=== PATIENT | male | born 1980 | race Caucasian/White ===

== ENCOUNTER 2023-02-09 07:11 | Inpatient (IN) | payer OTHER ==
[~2023-02-09] VITALS: Ht 177.8 cm; Wt 90.0 kg
[2023-02-09] VITALS (11 sets, daily range): BP systolic 94–174; BP diastolic 54–74
[2023-02-09 08:04] LABS: BASOPHILS # (AUTO) 0.1 X10'3 (0-0.2); BASOPHILS % (AUTO) 0.8 % (0-1); EOSINOPHILS # (AUTO) 0.1 X10'3 (0-0.9); EOSINOPHILS % (AUTO) 0.7 % (0-6); HEMATOCRIT 38.2 % (42.0-52.0); HEMOGLOBIN 12.9 g/dl (14.0-17.9); LYMPHOCYTES % (AUTO) 18.7 % (21-51); MEAN CORPUSCULAR HGB CONC 33.7 g/dL (33.0-36.5); MEAN CORPUSCULAR VOLUME 103.7 FL (78-98); MEAN PLATELET VOLUME 10.7 FL (7.4-10.4); MONOCYTES # (AUTO) 1.1 X10'3 (0-0.9); MONOCYTES % (AUTO) 10.5 % (2-12); NEUTROPHILS # (AUTO) 7.6 X10'3 (1.8-7.7); NEUTROPHILS % (AUTO) 69.3 % (42-75); PLATELET COUNT 61 X10'3 (140-440); RED BLOOD COUNT 3.69 X10'6 (4.70-6.10); RED CELL DISTRIBUTION WIDTH 15.4 % (11.5-14.5); WHITE BLOOD COUNT 10.9 X10'3 (4.5-11.0)
[2023-02-09 08:17] LABS: ALANINE AMINOTRANSFERASE 39 U/L (12-78); ALBUMIN 3.2 G/DL (3.4-5.0); ALKALINE PHOSPHATASE 157 IU/L (46-116); ANION GAP 14 (8-16); ASPARTATE AMINO TRANSFERASE 90 U/L (10-37); BILIRUBIN,TOTAL 7.1 MG/DL (0.1-1.0); BLOOD UREA NITROGEN 22 MG/DL (7-18); BUN/CREATININE RATIO 24.7 (10.0-20.0); CALCIUM 8.6 MG/DL (8.5-10.1); CHLORIDE 93 MMOL/L (99-107); CREATININE 0.89 MG/DL (0.60-1.10); GLUCOSE 132 MG/DL (70-104); LIPASE < 50 U/L (73-393); SODIUM 134 MMOL/L (135-145); TOTAL CARBON DIOXIDE 27.3 MMOL/L (24-32); eGFR > 90 ML/MIN
[2023-02-09] MEDS ORDERED: pantoprazole 40mg IV 80 MG in normal saline 100ml IV soln 100 ML IV STA (08:17)
[2023-02-09] MEDS ORDERED: pantoprazole 40MG/NS 100ML BAG 100 ML IV STA (08:17)
[2023-02-09 08:18] LABS: ALBUMIN/GLOBULIN RATIO 0.9 (1.1-1.5); TOTAL PROTEIN 6.6 G/DL (6.4-8.2)
[2023-02-09] MEDS ORDERED: octreotide 100mcg/1 ml ampule IV ONE (08:20)
[2023-02-09] MEDS ORDERED: octreotide inj. 1,250 MCG in normal saline 250ml IV soln 243.75 ML IV SCH (08:20)
--- NOTE | 2023-02-09 08:32 | NUR ---
lab called pt k is 3.0. dr rivera notified. rn will obtain iv
--- NOTE | 2023-02-09 08:52 | NUR ---
rn called pharmacy and req they make sandostatin bolus and drip. per pharm they have to make the protonix 80mg.
[2023-02-09 08:55] LABS: LARGE PLATELETS FEW; PLATELET ESTIMATE DECREASED
--- NOTE | 2023-02-09 08:56 | NUR ---
US AT BEDSIDE.
[2023-02-09] MEDS ORDERED: iohexol 350MG/ML 100ml bottle IV ONE (09:13)
--- NOTE | 2023-02-09 09:18 | NUR ---
PT TAKEN TO CT
--- NOTE | 2023-02-09 09:34 | NUR ---
STUDENT TRYING TO GET 2ND IV D/T FLUIDS NOT COMPATIBLE.
--- NOTE | 2023-02-09 09:49 | NUR ---
STUDENT RN NOT ABLE TO GET IV. RN ATTEMPTING TO GET 2ND IV NOW. RN REQ K1/2 NS FROM PHARM.
--- NOTE | 2023-02-09 09:54 | NUR ---
RN CONFIRMED WITH PHARMACIST JOAQUIN THAT 1/2NS WITH K CAN RUN Y SIDE WITH PROTONIX OR OCTREOTIDE.
[2023-02-09] MEDS ORDERED: folic acid 1mg/0.2ml inj IV STA (10:04)
[2023-02-09] MEDS ORDERED: normal saline 1000ml 1,000 ML IV ONE (10:05)
[2023-02-09] MEDS ORDERED: ondansetron/PF 4mg/2ml inj IV ONE (10:05)
[2023-02-09] MEDS ORDERED: LORazepam 2 mg/ml vial IV PRN ×2 (10:05→13:40)
[2023-02-09 10:14] LABS: BILIRUBIN,DIRECT 2.9 MG/DL (0-0.3)
[2023-02-09] MEDS: potassium Cl 40MEQ/1/2NS 520ml 520 ML IV PRN (10:44)
--- NOTE | 2023-02-09 10:56 | NUR ---
PT LEAVING TO GO TO GI LAB.
--- NOTE | 2023-02-09 11:05 | NUR ---
Met with patient in regards to alcohol use and to see if patient was interested in resources for treatment options. Patient declined resources. He said he is done with alcohol and does not need support or resources.
[2023-02-09 11:06] LABS: ETHANOL < 0.010 GM/DL (0.0-0.010)
[2023-02-09] MEDS ORDERED: fentaNYL/PF 50MCG/1 ML 2ML syringe ONE (11:37)
[2023-02-09] MEDS ORDERED: MIDAZolam 1 MG/ML 5ML VIAL ONE (11:37)
[2023-02-09] MEDS ORDERED: LIDOcaine Viscous 15ml cup ONE (11:37)
--- NOTE | 2023-02-09 13:00 | NUR ---
PT RETURNED FROM GI LAB. VSS. NO C/O PAIN.
[2023-02-09] MEDS: thiamine 100mg/ml 2ml inj. IV SCH ×2 (13:03→21:53)
[2023-02-09] MEDS ORDERED: magnesium Cl slow-release 64mg tablet PO PRN (13:40)
[2023-02-09] MEDS ORDERED: HYDROcodone/acetaminophen 10/325mg tab PO PRN (13:40)
[2023-02-09] MEDS ORDERED: diphenhydrAMINE 25mg capsule PO PRN (13:40)
[2023-02-09] MEDS ORDERED: magnesium hydroxide 30ml (MOM) UD suspension PO PRN (13:40)
[2023-02-09] MEDS ORDERED: magnesium 4gm in 100ml NS 100 ML IV PRN (13:40)
[2023-02-09] MEDS ORDERED: bisacodyl 10mg suppository rectal RC PRN (13:40)
[2023-02-09] MEDS ORDERED: potassium Cl 20 mEq SR tablet PO PRN ×2 (13:40)
[2023-02-09] MEDS ORDERED: morphine 2 MG/ML inj. syringe IV PRN ×2 (13:40)
[2023-02-09] MEDS ORDERED: ondansetron/PF 4mg/2ml inj IV PRN (13:40)
[2023-02-09] MEDS ORDERED: acetaminophen 650mg rectal suppository RC PRN (13:40)
[2023-02-09] MEDS ORDERED: potassium Cl 40MEQ/1/2NS 520ml 520 ML IV PRN (13:40)
[2023-02-09] MEDS ORDERED: mag hydrox/Alum hydrox/simeth 30ml oral suspension PO PRN (13:40)
[2023-02-09] MEDS ORDERED: haloperidol lactate 5mg/ml inj IM PRN (13:40)
[2023-02-09] MEDS ORDERED: HYDROcodone/acetaminophen 5mg/325mg tablet PO PRN (13:40)
[2023-02-09] MEDS ORDERED: dextrose 50%-water 50ml dispensing syringe IV PRN (13:40)
[2023-02-09] MEDS ORDERED: magnesium 2GM in 50ml NS 50 ML IV PRN (13:40)
[2023-02-09] MEDS ORDERED: acetaminophen 325mg tablet PO PRN ×2 (13:40)
[2023-02-09] MEDS ORDERED: haloperidol 5mg tablet PO PRN (13:40)
[2023-02-09] MEDS ORDERED: pantoprazole 40MG/NS 100ML BAG 100 ML IV SCH (14:00)
[2023-02-09 14:14] LABS: HEMOGLOBIN A1C 5.3 % (4.5-6.2)
--- NOTE | 2023-02-09 15:37 | NUR ---
RN SENT URINE TO LAB.
[2023-02-09 16:35] LABS: URINE AMPHETAMINE SCREEN NEGATIVE (Neg); URINE BARBITUATE SCREEN NEGATIVE (Neg); URINE BENZODIAZEPINES SCREEN POSITIVE (Neg); URINE CANNABINOID SCREEN NEGATIVE (Neg); URINE COCAINE SCREEN NEGATIVE (Neg); URINE METHADONE SCREEN NEGATIVE (Neg); URINE OPIATE SCREEN NEGATIVE (Neg); URINE PHENCYCLIDINE SCREEN NEGATIVE (Neg)
[2023-02-09 16:48] LABS: CLARITY,URINE CLEAR (Clear); COLOR,URINE AMBER (Yellow); UA COLLECTION TYPE CLN CATCH MIDSTREAM
[2023-02-09 16:50] LABS: PH,URINE 6.5 (4.8-8.0)
[2023-02-09] MEDS ORDERED: NO HOME MEDS (16:50)
[2023-02-09 16:51] LABS: GLUCOSE, URINE NEGATIVE (Neg); KETONES,URINE TRACE mg/dl (Neg); NITRITES, URINE NEGATIVE (Neg); OCCULT BLOOD,URINE NEGATIVE (Neg); PROTEIN,URINE TRACE mg/dl (Neg)
[2023-02-09 17:22] LABS: LEUKOCYTE ESTERASE ,URINE NEGATIVE (Neg)
[2023-02-09 17:23] LABS: BACTERIA,URINE NONE SEEN /HPF (Neg); RBC,URINE NONE SEEN /HPF (0-2); SQUAMOUS EPITHELIAL CELL,UR FEW /LPF (FEW); WBC,URINE 0-4 /HPF (0-4)
[2023-02-09] MEDS: pantoprazole 40MG/NS 100ML BAG 100 ML IV SCH ×2 (17:26→21:00)
--- NOTE | 2023-02-09 17:33 | NUR ---
PHARMACY SENT WRONG IV FLUIDS. 10/18 NS WITH 40 K SENT INSTEAD OF MAINTENANCE DOSE. RN WILL REQ NEW BAG.
--- NOTE | 2023-02-09 17:37 | NUR ---
PT STATED THAT HE DRINKS 1/2 PINT A DAY OF ALCOHOL AND LAST DRINK WAS 02/05/22. PT IS NOT VISIBLY DETOXING AND DENIES HAVING ANXIETY. RN EDUCATED PT THAT THIS MAY START AND S/S OF DT'S AND TO NOTIFY RN IF HE STARTS TO HAVE THEM AND HE VERBALIZED UNDERSTANDING.
[2023-02-09] MEDS ORDERED: nicotine 14mg patch - 24hr TD ONE (17:45)
--- NOTE | 2023-02-09 18:15 | NUR ---
RN RECD CORRECT FLUIDS FROM PHARMACY. ONCOMING SHIFT WILL START.
[2023-02-09 18:22] LABS: MAGNESIUM 1.2 MG/DL (1.5-2.4); POTASSIUM 3.5 MMOL/L (3.5-5.1)
[2023-02-09] MEDS: docusate sod 100mg capsule PO SCH (20:00)
[2023-02-09] MEDS: K and/or MAG REPLACEMENT MC SCH (20:00)
[2023-02-09] MEDS ORDERED: thiamine 100mg/ml 2ml inj. IV SCH (21:00)
[2023-02-09] MEDS: potassium Cl 20mEq in D5-NS 1,000 ML IV SCH (21:42)
[2023-02-10] MEDS: pantoprazole 40MG/NS 100ML BAG 100 ML IV SCH ×2 (00:27→04:28)
[2023-02-10 02:13] VITALS: BP 99/62
[2023-02-10] MEDS: potassium Cl 40MEQ/1/2NS 520ml 520 ML IV PRN (02:42)
[2023-02-10] MEDS: potassium Cl 20mEq in D5-NS 1,000 ML IV SCH (03:10)
--- NOTE | 2023-02-10 04:56 | NUR ---
Received from ER per w/c with octreotide and protonix gtt in tow. Pt. is status post EGD with results of Esophageal varices. Pt. is awake alert and oriented able to speak about events leading to admission no c/o pain states feels pretty good. Pt. has 3 peripheral IV's. pt. able to use BRP voids and defecates without complaints of bleeding. No further c/o nausea or vomiting. Magnesium replacement started for mag level of 1.2. Maintenance IV with KCL also started. Gave second dose of IV KCL for potassium level of 3.0. Will check levels in am.
[2023-02-10 06:00] VITALS: BP 105/47
[2023-02-10 07:51] LABS: BASOPHILS # (AUTO) 0.1 X10'3 (0-0.2); BASOPHILS % (AUTO) 0.8 % (0-1); EOSINOPHILS # (AUTO) 0.2 X10'3 (0-0.9); EOSINOPHILS % (AUTO) 2.8 % (0-6); HEMATOCRIT 28.6 % (42.0-52.0); HEMOGLOBIN 9.6 g/dl (14.0-17.9); LYMPHOCYTES # (AUTO) 1.3 X10'3 (1.1-4.8); LYMPHOCYTES % (AUTO) 18.1 % (21-51); MEAN CORPUSCULAR HEMOGLOBIN 35.2 PG (27.0-31.0); MEAN CORPUSCULAR HGB CONC 33.5 g/dL (33.0-36.5); MEAN PLATELET VOLUME 11.4 FL (7.4-10.4); MONOCYTES # (AUTO) 0.7 X10'3 (0-0.9); NEUTROPHILS # (AUTO) 4.8 X10'3 (1.8-7.7); NEUTROPHILS % (AUTO) 68.3 % (42-75); PLATELET COUNT 58 X10'3 (140-440); RED BLOOD COUNT 2.73 X10'6 (4.70-6.10); RED CELL DISTRIBUTION WIDTH 15.7 % (11.5-14.5)
[2023-02-10] MEDS: K and/or MAG REPLACEMENT MC SCH (08:00)
[2023-02-10] MEDS ORDERED: folic acid 1mg/0.2ml inj IV SCH (08:00)
[2023-02-10] MEDS ORDERED: multivitamins, therapeutics tablet PO SCH ×2 (08:00)
[2023-02-10 08:13] LABS: ALANINE AMINOTRANSFERASE 37 U/L (12-78); ALBUMIN 2.5 G/DL (3.4-5.0); ALKALINE PHOSPHATASE 107 IU/L (46-116); AMYLASE 11 U/L (25-115); ANION GAP 6 (8-16); ASPARTATE AMINO TRANSFERASE 118 U/L (10-37); BILIRUBIN,TOTAL 4.7 MG/DL (0.1-1.0); BLOOD UREA NITROGEN 18 MG/DL (7-18); BUN/CREATININE RATIO 23.4 (10.0-20.0); CALCIUM 7.2 MG/DL (8.5-10.1); CHLORIDE 101 MMOL/L (99-107); CREATININE 0.77 MG/DL (0.60-1.10); GLUCOSE 98 MG/DL (70-104); HDL CHOLESTEROL 12 MG/DL (35-60); LDL CHOLESTEROL 31 MG/DL (50-100); LIPASE 74 U/L (73-393); POTASSIUM 3.8 MMOL/L (3.5-5.1); SODIUM 137 MMOL/L (135-145); TOTAL CARBON DIOXIDE 29.9 MMOL/L (24-32); eGFR > 90 ML/MIN
[2023-02-10 08:15] LABS: CHOL/HDL RATIO 5.8 (0.00-4.99); CHOLESTEROL 69 MG/DL (0-200); PHOSPHORUS 2.4 MG/DL (2.3-4.5); TOTAL PROTEIN 5.1 G/DL (6.4-8.2); TRIGLYCERIDES 205 MG/DL (20-135)
[2023-02-10] MEDS: thiamine 100mg/ml 2ml inj. IV SCH (08:18)
[2023-02-10] MEDS: docusate sod 100mg capsule PO SCH (08:18)
[2023-02-10] MEDS ORDERED: lactulose 20gm/30ml cup PO SCH (12:00)
[2023-02-11] MEDS ORDERED: LORazepam 2 mg/ml vial IV PRN (13:40)
[2023-02-11] MEDS ORDERED: LORazepam 1 MG tablet PO PRN (13:40)
[2023-02-13] MEDS ORDERED: thiamine 100mg tablet PO SCH (08:00)
[2023-02-13] MEDS ORDERED: folic acid 1mg tablet PO SCH (08:00)
[2023-02-13] MEDS ORDERED: LORazepam 2 mg/ml vial IV PRN (13:40)
[2023-02-13] MEDS ORDERED: LORazepam 1 MG tablet PO PRN (13:40)
== END 2023-02-10 12:07 | disposition left against medical advice (07) | DRG 378 ==
LOC: ER 07:11 → ED HOLD 13:45 → EDBEDREQ 18:30 → PCU 3S 18:53
PROVIDERS: ADMIT Family Medicine; ATTEND Family Medicine
PROC: 0DB68ZX Excision of Stomach, Via Natural or Artificial Opening Endoscopic, Diagnostic (ICD-10-PCS; principal; 2023-02-09)
PROC: 30233R1 Transfusion of Nonautologous Platelets into Peripheral Vein, Percutaneous Approach (ICD-10-PCS; 2023-02-09)
PROC: BW211ZZ Computerized Tomography (CT Scan) of Abdomen and Pelvis using Low Osmolar Contrast (ICD-10-PCS; 2023-02-09)
DX: K29.71 Gastritis, unspecified, with bleeding (principal); D68.9 Coagulation defect, unspecified; F10.239 Alcohol dependence with withdrawal, unspecified; F17.210 Nicotine dependence, cigarettes, uncomplicated; D69.59 Other secondary thrombocytopenia; E83.42 Hypomagnesemia; I85.00 Esophageal varices without bleeding; E87.6 Hypokalemia; K70.30 Alcoholic cirrhosis of liver without ascites; Z53.29 Procedure and treatment not carried out because of patient's decision for other reasons; Z71.41 Alcohol abuse counseling and surveillance of alcoholic; Z71.6 Tobacco abuse counseling
CPT/HCPCS: 36415; 36430; 43239; 74174; 76700; 80053; 80061; 80305; 80320; 81001; 82140; 82150; 82248; 83036; 83690; 83735; 84100; 84132; 85008; 85025; 85610; 86885; 86900; 86901; 87081; 97161; 99152; 99285; A4620; C9113; G0378; J2250; J2354; J2405; J3010; J3411; J3475; J3480; J3490; J7030; J7050; P9035; Q9967

== ENCOUNTER 2023-06-09 12:20 | Inpatient (IN) | payer MEDICAID, OTHER ==
[2023-06-09] VITALS (30 sets, daily range): BP systolic 82–120; BP diastolic 29–62; PULSE 84–108; RESP 14–27; TEMP 93.9–97.8; O2SAT 88–99
[~2023-06-09] VITALS: Ht 172.7 cm; Wt 101.4 kg
[~2023-06-09 12:20] MED LIST: 0.9 % SODIUM CHLORIDE 10 ML VIAL ONE; NO HOME MEDS; atropine 0.1mg/ml 10ml syringe ONE; calcium chloride 100 MG/1 ML inj IV ONE; epiNEPHrine 0.1mg/ml 10ml syringe ONE
[2023-06-09] MEDS ORDERED: dextrose 50%-water 50ml dispensing syringe IV ONE ×2 (12:35)
[2023-06-09] MEDS ORDERED: LORazepam 2 mg/ml vial IV ONE (12:35)
[2023-06-09] MEDS ORDERED: LORazepam 2 mg/ml vial ONE (12:39)
--- NOTE | 2023-06-09 12:43 | NUR ---
1MG ATIVAN IV GIVEN
--- NOTE | 2023-06-09 12:45 | NUR ---
1245PM 1MG ATROPINE 1245PM - 1MG EPI HEART RATE 66 RT BAGGING, INTUBATING, 8.0CM ET HEART RATE 80 NOW AT 12:46PM COLOR CHANGE POSITIVE, 24CM TEETH, BILATERAL BREATHE SOUNDS 1248PM - 2 LITERS NS IN LEFT EJ, RIGHT AC IV.
--- NOTE | 2023-06-09 12:58 | NUR ---
DR. GOFF TO CT WITH PT.
[2023-06-09 13:11] LABS: BASOPHILS # (AUTO) 0.2 X10'3 (0-0.2); BASOPHILS % (AUTO) 0.5 % (0-1); EOSINOPHILS # (AUTO) 0.2 X10'3 (0-0.9); MEAN CORPUSCULAR HGB CONC 22.6 g/dL (33.0-36.5)
[2023-06-09 13:12] LABS: EOSINOPHILS % (AUTO) 0.6 % (0-6); LYMPHOCYTES # (AUTO) 8.5 X10'3 (1.1-4.8); LYMPHOCYTES % (AUTO) 24.7 % (21-51); MEAN CORPUSCULAR HEMOGLOBIN 21.4 PG (27.0-31.0); MEAN CORPUSCULAR VOLUME 94.8 FL (78-98); MEAN PLATELET VOLUME 11.6 FL (7.4-10.4); MONOCYTES # (AUTO) 4.5 X10'3 (0-0.9); MONOCYTES % (AUTO) 12.9 % (2-12); NEUTROPHILS # (AUTO) 21.1 X10'3 (1.8-7.7); NEUTROPHILS % (AUTO) 61.3 % (42-75); PLATELET COUNT 246 X10'3 (140-440); RED BLOOD COUNT 1.44 X10'6 (4.70-6.10); RED CELL DISTRIBUTION WIDTH 22.8 % (11.5-14.5)
[2023-06-09] MEDS ORDERED: iohexol 350MG/ML 100ml bottle IV ONE (13:14)
[2023-06-09 13:21] LABS: WHITE BLOOD COUNT 34.5 X10'3 (4.5-11.0)
[2023-06-09 13:22] LABS: HEMATOCRIT 13.7 % (42.0-52.0); HEMOGLOBIN 3.1 g/dl (14.0-17.9)
[2023-06-09] MEDS ORDERED: propofol 1000mg/100ml bottle 100 ML IV ONE (13:24)
[2023-06-09 13:29] LABS: ALANINE AMINOTRANSFERASE 89 U/L (12-78); ALBUMIN 3.2 G/DL (3.4-5.0); ALBUMIN/GLOBULIN RATIO 1.3 (1.1-1.5); ALKALINE PHOSPHATASE 78 IU/L (46-116); ASPARTATE AMINO TRANSFERASE 220 U/L (10-37); BILIRUBIN,TOTAL 2.2 MG/DL (0.1-1.0); BLOOD UREA NITROGEN 64 MG/DL (7-18); BUN/CREATININE RATIO 25.5 (10.0-20.0); CALCIUM 8.2 MG/DL (8.5-10.1); CHLORIDE 89 MMOL/L (99-107); CREATININE 2.51 MG/DL (0.60-1.10); ETHANOL < 10 MG/DL (<10); GLUCOSE 72 MG/DL (70-104); POTASSIUM 4.7 MMOL/L (3.5-5.1); SODIUM 129 MMOL/L (135-145); TOTAL PROTEIN 5.6 G/DL (6.4-8.2); eCRCL 37 ML/MIN; eGFR 28 ML/MIN
[2023-06-09] MEDS ORDERED: levetiracetam inj 1,000 MG in normal saline 100ml IV soln 90 ML IV STA (13:30)
--- NOTE | 2023-06-09 13:33 | NUR ---
BACK FROM CT.
[2023-06-09] MEDS: propofol 1000mg/100ml bottle 100 ML IV PRN ×2 (13:37→18:56)
[2023-06-09] MEDS ORDERED: levetiracetam inj 1,000 MG in normal saline 100ml IV soln 100 ML IV STA (13:38)
--- NOTE | 2023-06-09 13:38 | NUR ---
FAMILY IN LOBBY REPORTS PT AROUND 180 #
[2023-06-09 13:43] LABS: URINE AMPHETAMINE SCREEN NEGATIVE (Neg); URINE BARBITUATE SCREEN NEGATIVE (Neg); URINE BENZODIAZEPINES SCREEN NEGATIVE (Neg); URINE CANNABINOID SCREEN NEGATIVE (Neg); URINE COCAINE SCREEN NEGATIVE (Neg); URINE METHADONE SCREEN NEGATIVE (Neg); URINE OPIATE SCREEN NEGATIVE (Neg); URINE PHENCYCLIDINE SCREEN NEGATIVE (Neg)
--- NOTE | 2023-06-09 13:46 | NUR ---
GAIL (SIGNIFIGANT OTHER) [phone]
--- NOTE | 2023-06-09 13:48 | NUR ---
DR. GOFF SIGNED BLOOD CONSENT EMERGENT. PT GIRL FRIEND SAID PT WOULD WANT IT. HER NIECE WITH HER. BLOOD BANK BROUGHT BLOOD. DR. GOFF KNOWS PT IS A+ FROM LAST VISIT RECEIVING O-.
[2023-06-09 13:49] LABS: MAGNESIUM 2.7 MG/DL (1.5-2.4)
[2023-06-09 13:51] LABS: ANION GAP 35 (8-16); PHOSPHORUS 10.1 MG/DL (2.3-4.5)
[2023-06-09 13:53] LABS: TOTAL CARBON DIOXIDE < 5 MMOL/L (24-32)
--- NOTE | 2023-06-09 13:53 | NUR ---
DR. GOFF PLACING CENTRAL LINE.
[2023-06-09 13:54] LABS: ABG HCO3 2.4 mmol/L (22.0-26.0); ABG PCO2 (T) 17.8 mmHg (35.0-48.0); ABG PH (T) 6.727 (7.340-7.440); ABG PO2 (T) 511.3 mmHg (75.0-100.0); ALLEN'S TEST NEGATIVE; MODE VENT - AC/PRVC; PEEP 5 cm H2O; RESPIRATORY RATE 15 b/min; TIDAL VOLUME 975 mL; TOTAL HEMOGLOBIN < 4.7 G/dl (14.0-17.9)
--- NOTE | 2023-06-09 13:55 | NUR ---
DR. GOFF TOLD BY RT ABG RESULTS- WANTS 2 AMPS OF BICARB NOW. JAVIER HERNANDEZ WORKING ON BLOOD HANGING AND WARMER.
[2023-06-09] MEDS ORDERED: sodium bicarbonate (8.4%) 1 mEq/ml syringe IV ONE ×3 (14:00→17:25)
--- NOTE | 2023-06-09 14:00 | NUR ---
CENTRAL LINE IS IN BY DR. GOFF. BLOOD DOUBLE CHECKED BY Kael MACARIO AND SELF ON BLOOD ADMINISTRATION PAPERWORK.
[2023-06-09] MEDS ORDERED: calcium chloride 100 MG/1 ML inj IV ONE (14:10)
--- NOTE | 2023-06-09 14:17 | NUR ---
DR. FUENTES AT BEDSIDE AT BEDSIDE.
[2023-06-09 14:18] LABS: COLOR,URINE Yellow (Yellow); UA COLLECTION TYPE FOLEY CATH
--- NOTE | 2023-06-09 14:18 | NUR ---
BLOOD WARMER IS FIRST BAG OF BLOOD, AND LEVEL 1 WARMER FOR 2ND BAG.
[2023-06-09 14:19] LABS: INR 2.8 INR
[2023-06-09 14:19] LABS: BILIRUBIN,URINE NEGATIVE (Neg); CLARITY,URINE CLOUDY (Clear); GLUCOSE, URINE NEGATIVE (Neg); KETONES,URINE NEGATIVE (Neg); NITRITES, URINE NEGATIVE (Neg); OCCULT BLOOD,URINE TRACE-INTACT (Neg); PROTEIN,URINE 30 mg/dl (Neg)
[2023-06-09 14:20] LABS: LEUKOCYTE ESTERASE ,URINE NEGATIVE (Neg); UROBILINOGEN,URINE 0.2 E.U/dL (0.2-1.0)
--- NOTE | 2023-06-09 14:20 | NUR ---
DR. NICHOLSON AT BEDSIDE, WANTS LACTIC ACID, STILL PENDING WITH LAB. TOLD TO STOP PROPOFOL FOR LOW B/P.
[2023-06-09 14:21] LABS: TOTAL CELLS COUNTED 100
[2023-06-09 14:22] LABS: BACTERIA,URINE 1+ /HPF (Neg); MUCUS STRANDS FEW /LPF (Neg); SQUAMOUS EPITHELIAL CELL,UR MODERATE /LPF (FEW)
[2023-06-09 14:22] LABS: ANISOCYTOSIS 3+; HYPOCHROMASIA 1+; PLATELET ESTIMATE NORMAL
[2023-06-09] MEDS ORDERED: fentaNYL/PF 50MCG/1 ML 2ML syringe IV ONE (14:22)
[2023-06-09 14:23] LABS: AMORPHOUS URATES 3+; SPERM FEW /HPF (NEGATIVE)
[2023-06-09 14:23] LABS: BURR CELLS FEW; LARGE PLATELETS FEW; POLYCHROMASIA 1+
--- NOTE | 2023-06-09 14:23 | NUR ---
Naty rosa in [facility] - 06/09/23 at 1424 by LEONID PT LIGHTLY PULLING UP ON BEHAVIORAL RESTRAINTS.
--- NOTE | 2023-06-09 14:24 | NUR ---
PT LIGHTLY PULLING UP ON ARMS.
[2023-06-09] MEDS ORDERED: fentaNYL 50mcg/ml PF inj. 2,500 MCG in normal saline 250ml IV soln 200 ML IV SCH (14:25)
[2023-06-09 14:27] LABS: LACTIC SEPSIS 25.8 MMOL/L (0.4-2.0)
--- NOTE | 2023-06-09 14:29 | NUR ---
Kael MACARIO PLACED OG. GASTRIC CONTENTS SLIGHT YELLOW, 30CC.
[2023-06-09] MEDS ORDERED: CefTRIAXone 2gm/D5W 50ml BAG 50 ML IV ONE (14:30)
[2023-06-09] MEDS ORDERED: levoFLOXACIN-Levaquin 750MG/D5 150 ML IV STA (14:31)
[2023-06-09] MEDS ORDERED: magnesium Cl slow-release 64mg tablet PO PRN (14:35)
[2023-06-09] MEDS ORDERED: magnesium 4gm in 100ml NS 100 ML IV PRN (14:35)
[2023-06-09] MEDS ORDERED: CefTRIAXone/D5W-Rocephin 1gm 50 ML IV ONE (14:35)
[2023-06-09] MEDS ORDERED: magnesium 2GM in 50ml NS 50 ML IV PRN (14:35)
[2023-06-09] MEDS ORDERED: magnesium hydroxide 30ml (MOM) UD suspension PO PRN (14:35)
[2023-06-09] MEDS ORDERED: ondansetron/PF 4mg/2ml inj IV PRN (14:35)
[2023-06-09] MEDS ORDERED: FENTANYL-0.9 % NACL/PF 100 ML IV PRN (14:35)
[2023-06-09] MEDS ORDERED: potassium Cl 20 mEq SR tablet PO PRN ×2 (14:35)
[2023-06-09] MEDS ORDERED: potassium Cl 40MEQ/1/2NS 520ml 520 ML IV PRN (14:35)
[2023-06-09] MEDS ORDERED: mag hydrox/Alum hydrox/simeth 30ml oral suspension PO PRN (14:35)
--- NOTE | 2023-06-09 15:02 | NUR ---
PT PULLING AT SOFT RESTRAINTS, WILL TITRATE PER PROTOCOL/TITRATION ORDERED RATE.
[2023-06-09] MEDS: FENTANYL 1000MCG/NS 100 ML BAG /PF IV PRN ×3 (15:10→22:50)
[2023-06-09] MEDS ORDERED: DEXTROSE 5% IV SCH ×2 (15:15→16:15)
[2023-06-09] MEDS ORDERED: WATER IV SCH ×2 (15:15→16:15)
[2023-06-09] MEDS ORDERED: ACETYLCYSTEINE IV ONE ×2 (15:15→15:34)
[2023-06-09] MEDS ORDERED: ACETYLCYSTEINE IV SCH ×2 (15:15→16:15)
[2023-06-09] MEDS ORDERED: WATER IV ONE ×2 (15:15→15:34)
[2023-06-09] MEDS ORDERED: DEXTROSE 5% IV ONE ×2 (15:15→15:34)
[2023-06-09] MEDS: ipratropium/albuterol 3ml nebule NEB SCH ×3 (15:22→22:42)
[2023-06-09] MEDS ORDERED: methylPREDNISolone sod succ 125mg/2ml vial IV ONE (15:30)
[2023-06-09] MEDS ORDERED: octreotide 100mcg/1 ml ampule IV ONE (15:35)
[2023-06-09 15:39] LABS: CREATINE KINASE 580 U/L (39-308)
--- NOTE | 2023-06-09 15:46 | NUR ---
ADVISED DR FUENTES THAT THE SEDATION IS NOT EFFECTIVE, THE PT IS BUCKING THE VENT, ASKED IF HE WOULD CONSIDER A DIFFERENT MEDICATION FOR SEDATION. HE ADVISED THE PRIMARY RN THAT THEY WILL DEAL WITH THAT UP IN THE UNIT AFTER HE GOES UPSTAIRS.
[2023-06-09] MEDS ORDERED: thiamine 100mg/ml 2ml inj. IV STA (15:49)
--- NOTE | 2023-06-09 16:13 | NUR ---
PT EYES AND FACE ARE SWELLING, ADVISED DR FUENTES HE ADVISED TO BRING THE PT STRAIGHT UP TO THE ICU.
[2023-06-09] MEDS ORDERED: NORepinephrine 8mg/ 250ml NS 250 ML IV PRN (17:05)
[2023-06-09] MEDS ORDERED: normal saline 1000ml 1,000 ML IV ONE (17:25)
[2023-06-09] MEDS ORDERED: sodium bicarbonate (8.4%) inj. 1 MEQ/ML ML ONE (17:28)
[2023-06-09] MEDS: NORepinephrine 8mg/ 250ml NS 250 ML IV SCH ×2 (18:13→23:25)
[2023-06-09] MEDS: sodium bicarbonate 1meq/ml inj 150 ML in dextrose 5%-water 1,000 ML IV SCH (18:19)
[2023-06-09] MEDS: vasopressin inj. 40 UNIT in normal saline 50ml IV soln 38 ML IV SCH (18:21)
[2023-06-09] MEDS: ACETYLCYSTEINE IV SCH (18:21)
[2023-06-09] MEDS: WATER IV SCH (18:21)
[2023-06-09] MEDS: DEXTROSE 5% IV SCH (18:21)
--- NOTE | 2023-06-09 18:30 | NUR ---
Patient in room CICU 2010. I have received report from Vj HERRERA and had the opportunity to ask questions and assume patient care.
[2023-06-09 18:45] LABS: ABG HCO3 8.3 mmol/L (22.0-26.0); ABG OXYGEN SATURATION 96.6 % (94-97); ABG PCO2 (T) 30.2 mmHg (35.0-48.0); ABG PH (T) 7.044 (7.340-7.440); ALLEN'S TEST POSITIVE; FCOHb 0.1 % (0.0-3.9); FHHb 3.4 % (0.0-5.0); FMetHb 0.3 % (0.0-1.5); FO2Hb 96.2 % (94-97); MODE VENT - prvc; PATIENT TEMPERATURE 35.5; PEEP 5 cm H2O; RESPIRATORY RATE 20 b/min; TIDAL VOLUME 500 mL; TOTAL HEMOGLOBIN 7.7 G/dl (14.0-17.9)
[2023-06-09] MEDS ORDERED: CALCIUM GLUC 1gm/50ml NACL,iso 50 ML IV ONE (18:55)
--- NOTE | 2023-06-09 19:05 | NUR ---
Shift Note Pt arrived from ED to bed 2010 without report. Pt moved from gurney to bed x 3 RNs & RT. Pt bagged until placed back on vent. Restraints places as pt very cognisant - squeezed and released puncher and fastener bilaterally on command. Able to hold up 2 fingers on each and at request. Fairly agitated as expected. Unable to increase sedation due to pt low BP 60/20 on arrival. Fluids given via pressure bag, additional unit of blood given per MD order. Additional meds added as fast as possible and pts BP steadily kentrell. IV were scanned when time allowed so start times on IV flowsheet are not accurate but within about 90 min. Pts fiance came to see pt. Stated she'd called his brother who would be his decision maker. CN was in and out assisting with fluids, drips, family, as well as other ICU staff & RT, which was appreciate. I gave report to Elisabeth HERRERA for change of shift.
[2023-06-09 19:08] LABS: BASOPHILS # (AUTO) 0.1 X10'3 (0-0.2); BASOPHILS % (AUTO) 0.5 % (0-1); EOSINOPHILS # (AUTO) 0.1 X10'3 (0-0.9); EOSINOPHILS % (AUTO) 0.3 % (0-6); LYMPHOCYTES # (AUTO) 3.8 X10'3 (1.1-4.8); LYMPHOCYTES % (AUTO) 13.3 % (21-51); MEAN CORPUSCULAR HEMOGLOBIN 25.4 PG (27.0-31.0); MEAN CORPUSCULAR HGB CONC 29.5 g/dL (33.0-36.5); MEAN CORPUSCULAR VOLUME 85.9 FL (78-98); MEAN PLATELET VOLUME 10.8 FL (7.4-10.4); MONOCYTES # (AUTO) 2.4 X10'3 (0-0.9); MONOCYTES % (AUTO) 8.4 % (2-12); NEUTROPHILS # (AUTO) 22.1 X10'3 (1.8-7.7); NEUTROPHILS % (AUTO) 77.5 % (42-75); PLATELET COUNT 143 X10'3 (140-440); RED BLOOD COUNT 2.68 X10'6 (4.70-6.10); RED CELL DISTRIBUTION WIDTH 19.6 % (11.5-14.5)
[2023-06-09 19:12] LABS: HEMOGLOBIN 6.8 g/dl (14.0-17.9); WHITE BLOOD COUNT 28.5 X10'3 (4.5-11.0)
[2023-06-09 19:29] LABS: ALANINE AMINOTRANSFERASE 186 U/L (12-78); ALBUMIN 2.3 G/DL (3.4-5.0); ALBUMIN/GLOBULIN RATIO 1.2 (1.1-1.5); ALKALINE PHOSPHATASE 69 IU/L (46-116); ANION GAP 33 (8-16); ASPARTATE AMINO TRANSFERASE 540 U/L (10-37); BILIRUBIN,TOTAL 2.8 MG/DL (0.1-1.0); BLOOD UREA NITROGEN 59 MG/DL (7-18); BUN/CREATININE RATIO 22.5 (10.0-20.0); CALCIUM 6.5 MG/DL (8.5-10.1); CHLORIDE 94 MMOL/L (99-107); CREATININE 2.62 MG/DL (0.60-1.10); GLUCOSE 168 MG/DL (70-104); POTASSIUM 3.8 MMOL/L (3.5-5.1); SODIUM 137 MMOL/L (135-145); TOTAL PROTEIN 4.2 G/DL (6.4-8.2); eCRCL 36 ML/MIN; eGFR 27 ML/MIN
[2023-06-09 19:33] LABS: TOTAL CARBON DIOXIDE 10.1 MMOL/L (24-32)
[2023-06-09] MEDS: docusate sod 100mg capsule PO SCH (20:00)
[2023-06-09] MEDS: K and/or MAG REPLACEMENT MC SCH (20:00)
[2023-06-09] MEDS: methylPREDNISolone sod succ 125mg/2ml vial IV SCH (20:00)
[2023-06-09] MEDS: pantoprazole 40MG/NS 100ML BAG 100 ML IV SCH (20:03)
[2023-06-09] MEDS: lactulose 20gm/30ml cup PO SCH (20:03)
[2023-06-09] MEDS: octreotide inj. 500 MCG in normal saline 100ml IV soln 97.5 ML IV SCH (20:04)
[2023-06-09 21:06] LABS: NUCLEATED RED BLOOD CELLS 2 /100WBC (0-0); TOTAL CELLS COUNTED 100
[2023-06-09 21:08] LABS: ANISOCYTOSIS 2+; HYPOCHROMASIA 1+; PLATELET ESTIMATE DECREASED; POLYCHROMASIA 1+
[2023-06-09 21:09] LABS: BURR CELLS FEW; LARGE PLATELETS FEW; TARGET CELLS FEW
[2023-06-10] VITALS (41 sets, daily range): BP systolic 88–119; BP diastolic 43–62; PULSE 94–112; RESP 14–26; TEMP 98.2; O2SAT 87–98
[2023-06-10 01:23] LABS: HEMATOCRIT 30.2 % (42.0-52.0); HEMOGLOBIN 9.6 g/dl (14.0-17.9); MEAN CORPUSCULAR HEMOGLOBIN 26.5 PG (27.0-31.0); MEAN CORPUSCULAR HGB CONC 31.8 g/dL (33.0-36.5); MEAN CORPUSCULAR VOLUME 83.2 FL (78-98); MEAN PLATELET VOLUME 10.9 FL (7.4-10.4); PLATELET COUNT 116 X10'3 (140-440); RED BLOOD COUNT 3.62 X10'6 (4.70-6.10); RED CELL DISTRIBUTION WIDTH 18.4 % (11.5-14.5)
[2023-06-10 01:27] LABS: APTT 32 SECONDS (22-32); INR 2.5 INR; PROTHROMBIN TIME 25.3 SECONDS (9.0-12.0)
[2023-06-10 01:29] LABS: WHITE BLOOD COUNT 30.9 X10'3 (4.5-11.0)
[2023-06-10] MEDS: lactulose 20gm/30ml cup PO SCH ×4 (02:46→20:40)
[2023-06-10] MEDS: sodium bicarbonate 1meq/ml inj 150 ML in dextrose 5%-water 1,000 ML IV SCH ×3 (02:46→15:53)
[2023-06-10] MEDS: propofol 1000mg/100ml bottle 100 ML IV PRN ×3 (02:47→23:33)
[2023-06-10] MEDS: ipratropium/albuterol 3ml nebule NEB SCH ×3 (03:08→10:56)
[2023-06-10 03:35] LABS: ABG HCO3 16.7 mmol/L (22.0-26.0); ABG OXYGEN SATURATION 92.9 % (94-97); ABG PCO2 (T) 39.2 mmHg (35.0-48.0); ABG PH (T) 7.245 (7.340-7.440); ABG PO2 (T) 70.4 mmHg (75.0-100.0); ALLEN'S TEST POSITIVE; FCOHb 0.3 % (0.0-3.9); FHHb 7.1 % (0.0-5.0); FMetHb 0.3 % (0.0-1.5); FO2Hb 92.3 % (94-97); MODE VENT - prvc; PATIENT TEMPERATURE 36.6; PEEP 5 cm H2O; RESPIRATORY RATE 20 b/min; TIDAL VOLUME 500 mL; TOTAL HEMOGLOBIN 10.8 G/dl (14.0-17.9)
[2023-06-10] MEDS: vasopressin inj. 40 UNIT in normal saline 50ml IV soln 38 ML IV SCH ×2 (05:22→10:55)
[2023-06-10] MEDS: FENTANYL 1000MCG/NS 100 ML BAG /PF IV PRN ×3 (05:23→18:41)
[2023-06-10 05:28] LABS: BASOPHILS # (AUTO) 0.1 X10'3 (0-0.2); EOSINOPHILS % (AUTO) 0 % (0-6); HEMATOCRIT 29.8 % (42.0-52.0); RED BLOOD COUNT 3.62 X10'6 (4.70-6.10)
[2023-06-10 05:29] LABS: BASOPHILS % (AUTO) 0.3 % (0-1); HEMOGLOBIN 9.7 g/dl (14.0-17.9); LYMPHOCYTES # (AUTO) 2.4 X10'3 (1.1-4.8); LYMPHOCYTES % (AUTO) 8.5 % (21-51); MEAN CORPUSCULAR HEMOGLOBIN 26.8 PG (27.0-31.0); MEAN CORPUSCULAR HGB CONC 32.5 g/dL (33.0-36.5); MEAN CORPUSCULAR VOLUME 82.3 FL (78-98); MEAN PLATELET VOLUME 10.3 FL (7.4-10.4); MONOCYTES # (AUTO) 1.7 X10'3 (0-0.9); NEUTROPHILS % (AUTO) 85.2 % (42-75); PLATELET COUNT 95 X10'3 (140-440); RED CELL DISTRIBUTION WIDTH 18.6 % (11.5-14.5)
[2023-06-10 05:30] LABS: APTT 32 SECONDS (22-32); INR 2.6 INR; PROTHROMBIN TIME 26.5 SECONDS (9.0-12.0)
[2023-06-10 05:40] LABS: ALANINE AMINOTRANSFERASE 422 U/L (12-78); ALBUMIN 2.5 G/DL (3.4-5.0); ALKALINE PHOSPHATASE 69 IU/L (46-116); ANION GAP 23 (8-16); BILIRUBIN,TOTAL 6.6 MG/DL (0.1-1.0); BLOOD UREA NITROGEN 73 MG/DL (7-18); BUN/CREATININE RATIO 26.4 (10.0-20.0); CALCIUM 6.1 MG/DL (8.5-10.1); CHLORIDE 91 MMOL/L (99-107); CREATININE 2.77 MG/DL (0.60-1.10); GLUCOSE 287 MG/DL (70-104); MAGNESIUM 1.6 MG/DL (1.5-2.4); POTASSIUM 3.1 MMOL/L (3.5-5.1); SODIUM 135 MMOL/L (135-145); eCRCL 34 ML/MIN; eGFR 25 ML/MIN
[2023-06-10 05:45] LABS: WHITE BLOOD COUNT 28.2 X10'3 (4.5-11.0)
[2023-06-10 05:56] LABS: ANISOCYTOSIS 2+; NUCLEATED RED BLOOD CELLS 2 /100WBC (0-0); PLATELET ESTIMATE DECREASED; TOTAL CELLS COUNTED 100; TOXIC VACUOLATION FEW
[2023-06-10 05:57] LABS: BURR CELLS 1+; HYPOCHROMASIA 1+; LARGE PLATELETS FEW; POLYCHROMASIA 1+; TARGET CELLS FEW
[2023-06-10 06:03] LABS: ALBUMIN/GLOBULIN RATIO 1.3 (1.1-1.5); ASPARTATE AMINO TRANSFERASE 1379 U/L (10-37); PHOSPHORUS 5.4 MG/DL (2.3-4.5); TOTAL PROTEIN 4.5 G/DL (6.4-8.2)
--- NOTE | 2023-06-10 06:30 | NUR ---
Patient in room CICU 2010. I have received report from minal and had the opportunity to ask questions and assume patient care.
--- NOTE | 2023-06-10 06:41 | NUR ---
Problems reprioritized. Patient report given, questions answered & plan of care reviewed with Agnes HERRERA.
[2023-06-10] MEDS: potassium Cl 40MEQ/270ML bag 270 ML IV PRN ×3 (06:50→23:32)
[2023-06-10] MEDS: K and/or MAG REPLACEMENT MC SCH ×2 (08:00→20:00)
[2023-06-10] MEDS ORDERED: levoFLOXACIN-Levaquin 750MG/D5 150 ML IV SCH (08:00)
[2023-06-10] MEDS: methylPREDNISolone sod succ 125mg/2ml vial IV SCH ×2 (08:59→20:43)
[2023-06-10] MEDS: MVI, adult No.4 with vit. K 10 ML in dextrose 5% water 500ml 500 ML IV SCH ×2 (09:00)
[2023-06-10] MEDS: docusate sod 100mg capsule PO SCH ×2 (09:00→20:00)
[2023-06-10] MEDS: thiamine 100mg/ml 2ml inj. IV SCH (09:00)
[2023-06-10] MEDS: CefTRIAXone/D5W-Rocephin 1gm 50 ML IV SCH (09:01)
[2023-06-10] MEDS: folic acid 1mg/0.2ml inj IV SCH (09:01)
[2023-06-10] MEDS: pantoprazole 40MG/NS 100ML BAG 100 ML IV SCH ×2 (09:01→20:40)
[2023-06-10] MEDS ORDERED: dextrose 50%-water 50ml dispensing syringe IV PRN ×2 (09:30)
[2023-06-10 10:38] LABS: HEMATOCRIT 28.6 % (42.0-52.0); HEMOGLOBIN 9.2 g/dl (14.0-17.9); MEAN CORPUSCULAR HEMOGLOBIN 26.3 PG (27.0-31.0); MEAN PLATELET VOLUME 10.7 FL (7.4-10.4); PLATELET COUNT 74 X10'3 (140-440); RED BLOOD COUNT 3.49 X10'6 (4.70-6.10); RED CELL DISTRIBUTION WIDTH 18.3 % (11.5-14.5)
[2023-06-10] MEDS: NORepinephrine 8mg/ 250ml NS 250 ML IV SCH (10:41)
[2023-06-10] MEDS: ACETYLCYSTEINE IV SCH (10:50)
[2023-06-10] MEDS: DEXTROSE 5% IV SCH (10:50)
[2023-06-10] MEDS: WATER IV SCH (10:50)
[2023-06-10 10:53] LABS: ALBUMIN 2.3 G/DL (3.4-5.0); ANION GAP 18 (8-16); BLOOD UREA NITROGEN 76 MG/DL (7-18); BUN/CREATININE RATIO 26.8 (10.0-20.0); CHLORIDE 91 MMOL/L (99-107); CREATININE 2.84 MG/DL (0.60-1.10); GLUCOSE 293 MG/DL (70-104); POTASSIUM 3.1 MMOL/L (3.5-5.1); SODIUM 131 MMOL/L (135-145); TOTAL CARBON DIOXIDE 21.6 MMOL/L (24-32); eCRCL 33 ML/MIN; eGFR 25 ML/MIN
[2023-06-10] MEDS: octreotide inj. 500 MCG in normal saline 100ml IV soln 97.5 ML IV SCH (10:56)
--- NOTE | 2023-06-10 11:04 | NUR ---
Initial: Pt admit for respiratory arrest, lactic acidosis, septic shock, AMS, VANI, and coffee ground emesis. Pt intubated at this time, Propofol visualized at bedside to be running at 10 mcg/kg/min (6.6 mL/hr) providing 174 kcal/day. An OGT is in place to suction, visualized with roughly 300 mL output. No plans to initiate nutrition support at this time given coffee ground output though TF recs below for if expected prolonged intubation and to receive nutrition support. Per RN at [facility] pt to begin hyperglycemic protocol d/t an episode of hypoglycemia. Pt currently receiving routine Thiamine, Folic acid, and MVI for EtOH hx. Noted pt with a low Lukas of 12, no wounds identified at this time. No documented BM since admit, pt receiving routine Colace and Lactulose with additional PRN bowel care available. Will continue to follow closely and make recommendations as appropriate. Recommendations: 1) IF TF and Propofol at 6.6 mL/hr (174 kcal/day), continuous Vital HP with 65 mL/hr goal rate to provide 1560 mL total volume/day, 1560 kcal, 137 g protein, and 1304 mL water. Begin at 25 mL/hr and advance by 20 mL Q8H as tolerated to goal rate 2) Monitor Propofol rate and need to adjust TF recs; IF Propofol discontinued, continuous Vital HP with 70 mL/hr goal rate 3) IF TF, monitor serum Na for water flush recs, pt hyponatremic on admit 4) IF TF, prealbumin q Tuesday/ 5) Continue routine Thiamine, Folic acid, and MVI d/t EtOH hx 6) Routine bowel care 7) Daily scaled weights Addendum: 06/10/23 at [address] Amended: Links added.
[2023-06-10] MEDS: insulin Lispro (HumaLOG) vial - multi-dose SQ SCH ×3 (11:23→20:47)
--- NOTE | 2023-06-10 12:00 | NUR ---
pt wakes up to name, nods, calms down with diprivan and fentanyl. replacing k and again after lab checked. able to decrease levo somewhat. update to md. remains on all gtts as this am. will dc mucomyst at end of shift- verified with . brotherflor at bs. trop up- ekg repeated and demetra sales consulted and with dr thorpe- phyllis valencia. echo done
[2023-06-10 15:25] LABS: HEMATOCRIT 27.4 % (42.0-52.0); MEAN CORPUSCULAR HEMOGLOBIN 26.7 PG (27.0-31.0); MEAN CORPUSCULAR HGB CONC 32.8 g/dL (33.0-36.5); MEAN CORPUSCULAR VOLUME 81.4 FL (78-98); PLATELET COUNT 61 X10'3 (140-440); RED BLOOD COUNT 3.37 X10'6 (4.70-6.10); RED CELL DISTRIBUTION WIDTH 18.3 % (11.5-14.5)
--- NOTE | 2023-06-10 18:30 | NUR ---
Patient in room CICU 2010. I have received report from Agnes HERRERA and had the opportunity to ask questions and assume patient care.
[2023-06-10 20:12] LABS: HEMATOCRIT 28.4 % (42.0-52.0); HEMOGLOBIN 9.4 g/dl (14.0-17.9); MEAN CORPUSCULAR HEMOGLOBIN 26.9 PG (27.0-31.0); MEAN CORPUSCULAR HGB CONC 33.1 g/dL (33.0-36.5); MEAN PLATELET VOLUME 10.5 FL (7.4-10.4); PLATELET COUNT 67 X10'3 (140-440); RED BLOOD COUNT 3.51 X10'6 (4.70-6.10); RED CELL DISTRIBUTION WIDTH 18.3 % (11.5-14.5); WHITE BLOOD COUNT 22.4 X10'3 (4.5-11.0)
[2023-06-10] MEDS: mineral oil/petrolatum ophthal oint EACHEYE SCH (20:43)
[2023-06-10] MEDS: insulin glargine (Lantus) pen - multi-dose SQ SCH (20:48)
[2023-06-10 22:06] LABS: ALBUMIN 2.4 G/DL (3.4-5.0); ANION GAP 15 (8-16); BLOOD UREA NITROGEN 75 MG/DL (7-18); BUN/CREATININE RATIO 24.4 (10.0-20.0); CHLORIDE 92 MMOL/L (99-107); CREATININE 3.07 MG/DL (0.60-1.10); GLUCOSE 277 MG/DL (70-104); MAGNESIUM 1.8 MG/DL (1.5-2.4); POTASSIUM 3.2 MMOL/L (3.5-5.1); SODIUM 133 MMOL/L (135-145); TOTAL CARBON DIOXIDE 26.3 MMOL/L (24-32); eCRCL 31 ML/MIN; eGFR 23 ML/MIN
[2023-06-10 22:08] LABS: PHOSPHORUS 5.7 MG/DL (2.3-4.5)
[2023-06-10 22:09] LABS: CALCIUM 5.8 MG/DL (8.5-10.1)
[2023-06-10] MEDS ORDERED: ringers solution, lacted 1,000 ML IV SCH (22:40)
[2023-06-10] MEDS ORDERED: CALCIUM GLUC 1gm/50ml NACL,iso 50 ML IV ONE (22:40)
[2023-06-11] VITALS (39 sets, daily range): BP systolic 87–125; BP diastolic 43–71; PULSE 87–106; RESP 19–26; O2SAT 88–96
[2023-06-11] MEDS: FENTANYL 1000MCG/NS 100 ML BAG /PF IV PRN ×2 (02:10→07:29)
[2023-06-11] MEDS: lactulose 20gm/30ml cup PO SCH ×4 (02:13→20:28)
[2023-06-11] MEDS: mineral oil/petrolatum ophthal oint EACHEYE SCH ×4 (02:13→20:26)
[2023-06-11 02:53] LABS: HEMATOCRIT 27.1 % (42.0-52.0); HEMOGLOBIN 9.2 g/dl (14.0-17.9); MEAN CORPUSCULAR HEMOGLOBIN 27.1 PG (27.0-31.0); MEAN CORPUSCULAR HGB CONC 33.8 g/dL (33.0-36.5); MEAN CORPUSCULAR VOLUME 80.1 FL (78-98); MEAN PLATELET VOLUME 10.5 FL (7.4-10.4); PLATELET COUNT 61 X10'3 (140-440); RED BLOOD COUNT 3.38 X10'6 (4.70-6.10); RED CELL DISTRIBUTION WIDTH 18.7 % (11.5-14.5); WHITE BLOOD COUNT 16.4 X10'3 (4.5-11.0)
[2023-06-11] MEDS: insulin Lispro (HumaLOG) vial - multi-dose SQ SCH ×4 (03:06→21:01)
[2023-06-11] MEDS: vasopressin inj. 40 UNIT in normal saline 50ml IV soln 38 ML IV SCH (04:05)
[2023-06-11 04:35] LABS: HEMATOCRIT 27.5 % (42.0-52.0); HEMOGLOBIN 9.2 g/dl (14.0-17.9); MEAN CORPUSCULAR HEMOGLOBIN 26.7 PG (27.0-31.0); MEAN CORPUSCULAR HGB CONC 33.4 g/dL (33.0-36.5); MEAN CORPUSCULAR VOLUME 79.8 FL (78-98); MEAN PLATELET VOLUME 10.9 FL (7.4-10.4); PLATELET COUNT 63 X10'3 (140-440); RED BLOOD COUNT 3.44 X10'6 (4.70-6.10); RED CELL DISTRIBUTION WIDTH 18.8 % (11.5-14.5); WHITE BLOOD COUNT 17.2 X10'3 (4.5-11.0)
[2023-06-11 04:48] LABS: APTT 33 SECONDS (22-32); PROTHROMBIN TIME 20.5 SECONDS (9.0-12.0)
[2023-06-11 04:53] LABS: ALANINE AMINOTRANSFERASE 480 U/L (12-78); ALBUMIN 2.2 G/DL (3.4-5.0); ALKALINE PHOSPHATASE 72 IU/L (46-116); ANION GAP 14 (8-16); ASPARTATE AMINO TRANSFERASE 935 U/L (10-37); BILIRUBIN,TOTAL 5.2 MG/DL (0.1-1.0); BLOOD UREA NITROGEN 76 MG/DL (7-18); BUN/CREATININE RATIO 24.3 (10.0-20.0); CHLORIDE 94 MMOL/L (99-107); CREATININE 3.13 MG/DL (0.60-1.10); GLUCOSE 220 MG/DL (70-104); MAGNESIUM 1.7 MG/DL (1.5-2.4); POTASSIUM 3.3 MMOL/L (3.5-5.1); SODIUM 134 MMOL/L (135-145); TOTAL CARBON DIOXIDE 26.2 MMOL/L (24-32); eCRCL 30 ML/MIN; eGFR 22 ML/MIN
[2023-06-11 05:00] LABS: ABG BASE EXCESS -4.1 mmol/L (-2.0-2.0); ABG HCO3 22.5 mmol/L (22.0-26.0); ABG OXYGEN SATURATION 91.6 % (94-97); ABG PCO2 (T) 48.1 mmHg (35.0-48.0); ABG PH (T) 7.287 (7.340-7.440); ALLEN'S TEST POSITIVE; FCOHb 0.3 % (0.0-3.9); FHHb 8.3 % (0.0-5.0); FMetHb 0.3 % (0.0-1.5); FO2Hb 91.1 % (94-97); MODE VENT - prvc; PATIENT TEMPERATURE 36.9; PEEP 8 cm H2O; RESPIRATORY RATE 20 b/min; TIDAL VOLUME 500 mL; TOTAL HEMOGLOBIN 10.1 G/dl (14.0-17.9)
[2023-06-11 05:03] LABS: PHOSPHORUS 4.8 MG/DL (2.3-4.5); TOTAL PROTEIN 4.5 G/DL (6.4-8.2)
[2023-06-11] MEDS ORDERED: CALCIUM GLUC 1gm/50ml NACL,iso 50 ML IV ONE (05:45)
--- NOTE | 2023-06-11 06:26 | NUR ---
Problems reprioritized. Patient report given, questions answered & plan of care reviewed with Agnes HERRERA.
[2023-06-11 06:27] LABS: NUCLEATED RED BLOOD CELLS 17 /100WBC (0-0); TOTAL CELLS COUNTED 100
--- NOTE | 2023-06-11 06:30 | NUR ---
Patient in room CICU 2010. I have received report from minal and had the opportunity to ask questions and assume patient care.
[2023-06-11 06:31] LABS: ANISOCYTOSIS 2+; PLATELET ESTIMATE DECREASED
[2023-06-11] MEDS: potassium Cl 40MEQ/270ML bag 270 ML IV PRN (06:33)
[2023-06-11] MEDS: propofol 1000mg/100ml bottle 100 ML IV PRN ×3 (06:36→21:54)
[2023-06-11 06:41] LABS: POIKILOCYTOSIS FEW
[2023-06-11 06:42] LABS: MICROCYTOSIS 1+; POLYCHROMASIA FEW
[2023-06-11 06:43] LABS: BURR CELLS 1+
[2023-06-11] MEDS: NORepinephrine 8mg/ 250ml NS 250 ML IV SCH ×2 (07:28→17:01)
[2023-06-11] MEDS: octreotide inj. 500 MCG in normal saline 100ml IV soln 97.5 ML IV SCH ×3 (07:29→21:54)
[2023-06-11] MEDS: CefTRIAXone/D5W-Rocephin 1gm 50 ML IV SCH (07:30)
[2023-06-11] MEDS: pantoprazole 40MG/NS 100ML BAG 100 ML IV SCH ×4 (07:30→19:52)
[2023-06-11] MEDS: MVI, adult No.4 with vit. K 10 ML in dextrose 5% water 500ml 500 ML IV SCH ×2 (07:30)
[2023-06-11] MEDS: folic acid 1mg/0.2ml inj IV SCH (07:31)
[2023-06-11] MEDS: methylPREDNISolone sod succ 125mg/2ml vial IV SCH ×2 (07:31→20:28)
[2023-06-11] MEDS: docusate sod 100mg capsule PO SCH ×2 (07:31→20:28)
[2023-06-11] MEDS: thiamine 100mg/ml 2ml inj. IV SCH (07:31)
[2023-06-11] MEDS: K and/or MAG REPLACEMENT MC SCH ×2 (08:00→20:00)
--- NOTE | 2023-06-11 09:00 | NUR ---
update to md re labs, increase in levophed, increased fio2 and peep. lasix given and lr, banana bag, sandostatin dcd. after ogt clamped for lactulose- and then unclamped- drainage fro green bile to red blood- dark to red. hgb done- md aware- sandostatin restarted and protonix gtt started,
[2023-06-11] MEDS ORDERED: furosemide 10 MG/1 ML 10ml inj IV ONE (09:45)
[2023-06-11 10:28] LABS: HEMATOCRIT 26.9 % (42.0-52.0); HEMOGLOBIN 8.8 g/dl (14.0-17.9); MEAN CORPUSCULAR HEMOGLOBIN 26.3 PG (27.0-31.0); MEAN CORPUSCULAR HGB CONC 32.7 g/dL (33.0-36.5); MEAN CORPUSCULAR VOLUME 80.5 FL (78-98); MEAN PLATELET VOLUME 10.8 FL (7.4-10.4); PLATELET COUNT 67 X10'3 (140-440); RED BLOOD COUNT 3.34 X10'6 (4.70-6.10); RED CELL DISTRIBUTION WIDTH 18.7 % (11.5-14.5); WHITE BLOOD COUNT 18.3 X10'3 (4.5-11.0)
[2023-06-11 10:48] LABS: ALBUMIN 2.2 G/DL (3.4-5.0); ANION GAP 10 (8-16); BLOOD UREA NITROGEN 74 MG/DL (7-18); BUN/CREATININE RATIO 24.9 (10.0-20.0); CALCIUM 6.4 MG/DL (8.5-10.1); CHLORIDE 95 MMOL/L (99-107); CREATININE 2.97 MG/DL (0.60-1.10); GLUCOSE 254 MG/DL (70-104); POTASSIUM 3.8 MMOL/L (3.5-5.1); SODIUM 134 MMOL/L (135-145); TOTAL CARBON DIOXIDE 28.6 MMOL/L (24-32); eCRCL 32 ML/MIN; eGFR 23 ML/MIN
--- NOTE | 2023-06-11 11:00 | NUR ---
hgb stable at 8.8, uo increased post lasix
--- NOTE | 2023-06-11 11:29 | NUR ---
Pt phone and sales enablement manager given to abhishek
[2023-06-11 15:11] LABS: HEMATOCRIT 26.9 % (42.0-52.0); HEMOGLOBIN 8.8 g/dl (14.0-17.9); MEAN CORPUSCULAR HEMOGLOBIN 26.4 PG (27.0-31.0); MEAN CORPUSCULAR HGB CONC 32.8 g/dL (33.0-36.5); MEAN CORPUSCULAR VOLUME 80.6 FL (78-98); MEAN PLATELET VOLUME 11.2 FL (7.4-10.4); PLATELET COUNT 69 X10'3 (140-440); RED BLOOD COUNT 3.34 X10'6 (4.70-6.10); RED CELL DISTRIBUTION WIDTH 18.7 % (11.5-14.5); WHITE BLOOD COUNT 18.3 X10'3 (4.5-11.0)
[2023-06-11 15:20] LABS: PHOSPHORUS 4.1 MG/DL (2.3-4.5)
[2023-06-11 15:22] LABS: CREATINE KINASE 4448 U/L (39-308)
[2023-06-11 15:23] LABS: PHOS, URINE RANDOM 51.4 MG/DL; SODIUM,URINE RANDOM < 15 MEQ/L
[2023-06-11 15:25] LABS: ALBUMIN 2.2 G/DL (3.4-5.0); ANION GAP 12 (8-16); BLOOD UREA NITROGEN 75 MG/DL (7-18); BUN/CREATININE RATIO 25.8 (10.0-20.0); CALCIUM 6.5 MG/DL (8.5-10.1); CHLORIDE 96 MMOL/L (99-107); CREATININE 2.91 MG/DL (0.60-1.10); GLUCOSE 245 MG/DL (70-104); POTASSIUM 3.5 MMOL/L (3.5-5.1); SODIUM 136 MMOL/L (135-145); TOTAL CARBON DIOXIDE 28.1 MMOL/L (24-32); eCRCL 32 ML/MIN; eGFR 24 ML/MIN
[2023-06-11 15:32] LABS: TOTAL PROTEIN,URINE RANDOM 34.7 MG/DL
[2023-06-11 15:58] LABS: ABG BASE EXCESS -0.4 mmol/L (-2.0-2.0); ABG HCO3 25.8 mmol/L (22.0-26.0); ABG OXYGEN SATURATION 95.6 % (94-97); ABG PCO2 (T) 50.7 mmHg (35.0-48.0); ABG PH (T) 7.327 (7.340-7.440); ABG PO2 (T) 85.2 mmHg (75.0-100.0); ALLEN'S TEST NEGATIVE; FCOHb 0.3 % (0.0-3.9); FHHb 4.4 % (0.0-5.0); FMetHb 0.3 % (0.0-1.5); MODE VENT - AC/PRVC; PATIENT TEMPERATURE 37.4; PEEP 8 cm H2O; RESPIRATORY RATE 24 b/min; TIDAL VOLUME 500 mL; TOTAL HEMOGLOBIN 9.8 G/dl (14.0-17.9)
[2023-06-11 16:53] LABS: BILIRUBIN,URINE NEGATIVE (Neg); CLARITY,URINE CLEAR (Clear); COLOR,URINE YELLOW (Yellow); GLUCOSE, URINE NEGATIVE (Neg); KETONES,URINE TRACE mg/dl (Neg); LEUKOCYTE ESTERASE ,URINE NEGATIVE (Neg); NITRITES, URINE NEGATIVE (Neg); OCCULT BLOOD,URINE MODERATE (Neg); PH,URINE 5.5 (4.8-8.0); PROTEIN,URINE NEGATIVE (Neg)
[2023-06-11 16:56] LABS: UA COLLECTION TYPE FOLEY CATH
[2023-06-11 16:57] LABS: BACTERIA,URINE NONE SEEN /HPF (Neg); COARSE GRANULAR CAST 0-3 /LPF (NEGATIVE); MUCUS STRANDS FEW /LPF (Neg); SQUAMOUS EPITHELIAL CELL,UR NONE SEEN /LPF (FEW); WBC,URINE 0-4 /HPF (0-4)
--- NOTE | 2023-06-11 17:02 | NUR ---
hemogram remains stable. ogt dk red drainage
[2023-06-11] MEDS: insulin glargine (Lantus) pen - multi-dose SQ SCH (21:02)
[2023-06-12] VITALS (39 sets, daily range): BP systolic 92–124; BP diastolic 46–67; PULSE 85–104; RESP 15–24; O2SAT 84–97
[2023-06-12] MEDS: NORepinephrine 8mg/ 250ml NS 250 ML IV SCH ×2 (00:28→10:19)
[2023-06-12] MEDS: FENTANYL 1000MCG/NS 100 ML BAG /PF IV PRN ×4 (00:58→19:58)
[2023-06-12] MEDS: pantoprazole 40MG/NS 100ML BAG 100 ML IV SCH ×5 (01:03→19:54)
[2023-06-12] MEDS: insulin Lispro (HumaLOG) vial - multi-dose SQ SCH ×4 (01:52→20:57)
[2023-06-12] MEDS: mineral oil/petrolatum ophthal oint EACHEYE SCH ×5 (02:00→22:30)
[2023-06-12] MEDS: lactulose 20gm/30ml cup PO SCH ×5 (02:13→22:30)
[2023-06-12 02:27] LABS: APTT 30 SECONDS (22-32); INR 1.6 INR; PROTHROMBIN TIME 16.7 SECONDS (9.0-12.0)
[2023-06-12 02:29] LABS: ALKALINE PHOSPHATASE 82 IU/L (46-116); CALCIUM 6.5 MG/DL (8.5-10.1); MAGNESIUM 1.8 MG/DL (1.5-2.4); POTASSIUM 3.3 MMOL/L (3.5-5.1); eCRCL 36 ML/MIN
[2023-06-12 02:52] LABS: BASOPHILS % (AUTO) 0.1 % (0-1); EOSINOPHILS % (AUTO) 0.1 % (0-6); LYMPHOCYTES % (AUTO) 8.4 % (21-51); MONOCYTES # (AUTO) 1.6 X10'3 (0-0.9); MONOCYTES % (AUTO) 9.8 % (2-12); NEUTROPHILS % (AUTO) 81.6 % (42-75)
[2023-06-12 02:54] LABS: LYMPHOCYTES # (AUTO) 1.4 X10'3 (1.1-4.8); MEAN CORPUSCULAR HEMOGLOBIN 26.5 PG (27.0-31.0); MEAN CORPUSCULAR HGB CONC 33.2 g/dL (33.0-36.5); MEAN CORPUSCULAR VOLUME 79.8 FL (78-98); MEAN PLATELET VOLUME 9.9 FL (7.4-10.4); NEUTROPHILS # (AUTO) 13.1 X10'3 (1.8-7.7); PLATELET COUNT 67 X10'3 (140-440); RED BLOOD COUNT 3.38 X10'6 (4.70-6.10); RED CELL DISTRIBUTION WIDTH 19.3 % (11.5-14.5); WHITE BLOOD COUNT 16.1 X10'3 (4.5-11.0)
[2023-06-12 02:58] LABS: ABG BASE EXCESS 0.7 mmol/L (-2.0-2.0); ABG HCO3 24.6 mmol/L (22.0-26.0); ABG PCO2 (T) 37.5 mmHg (35.0-48.0); ABG PH (T) 7.437 (7.340-7.440); ABG PO2 (T) 114.2 mmHg (75.0-100.0); ALLEN'S TEST POSITIVE; FCOHb 0.3 % (0.0-3.9); FMetHb 0.3 % (0.0-1.5); FO2Hb 97.4 % (94-97); MODE VENT - prvc; PATIENT TEMPERATURE 37.6; PEEP 8 cm H2O; RESPIRATORY RATE 24 b/min; TIDAL VOLUME 550 mL; TOTAL HEMOGLOBIN 9.6 G/dl (14.0-17.9)
[2023-06-12 03:03] LABS: ALBUMIN/GLOBULIN RATIO 0.9 (1.1-1.5)
[2023-06-12] MEDS: potassium Cl 40MEQ/270ML bag 270 ML IV PRN (03:07)
[2023-06-12] MEDS: vasopressin inj. 40 UNIT in normal saline 50ml IV soln 38 ML IV SCH (03:08)
[2023-06-12 06:08] LABS: ALANINE AMINOTRANSFERASE 437 U/L (12-78); ALBUMIN 2.4 G/DL (3.4-5.0); ANION GAP 14 (8-16); ASPARTATE AMINO TRANSFERASE 578 U/L (10-37); BILIRUBIN,TOTAL 5.7 MG/DL (0.1-1.0); BLOOD UREA NITROGEN 79 MG/DL (7-18); BUN/CREATININE RATIO 29.9 (10.0-20.0); CHLORIDE 98 MMOL/L (99-107); CREATININE 2.64 MG/DL (0.60-1.10); GLUCOSE 221 MG/DL (70-104); SODIUM 137 MMOL/L (135-145); TOTAL CARBON DIOXIDE 25.2 MMOL/L (24-32); eGFR 27 ML/MIN
[2023-06-12 06:09] LABS: PHOSPHORUS 2.3 MG/DL (2.3-4.5); TOTAL PROTEIN 5.1 G/DL (6.4-8.2)
[2023-06-12] MEDS: thiamine 100mg/ml 2ml inj. IV SCH (07:39)
[2023-06-12] MEDS: methylPREDNISolone sod succ 125mg/2ml vial IV SCH ×2 (07:39→19:53)
[2023-06-12] MEDS: docusate sod 100mg capsule PO SCH ×2 (07:40→19:53)
[2023-06-12] MEDS: CefTRIAXone/D5W-Rocephin 1gm 50 ML IV SCH (07:40)
[2023-06-12] MEDS: folic acid 1mg/0.2ml inj IV SCH (07:47)
[2023-06-12] MEDS: K and/or MAG REPLACEMENT MC SCH ×2 (07:48→19:38)
[2023-06-12] MEDS: levoFLOXACIN-Levaquin 750MG/D5 150 ML IV SCH (08:19)
[2023-06-12] MEDS: propofol 1000mg/100ml bottle 100 ML IV PRN ×2 (10:19→19:58)
--- NOTE | 2023-06-12 10:47 | NUR ---
TF Consult "trickle feeds": Pt remains intubated to start trickle EN at 20ml/hr per founder ceo & president this AM; EN recs below. Propofol at 9.9ml/hr this AM per EMR providing additional 261 kcals/day. Will monitor for EN tolerance and further nutrition intervention needs. Recommendations: 1) Trickle TF at 20ml/hr per MD using Vital HP; to provide 480ml volume/day, 480 kcals, 401ml water, and 42g protein. 2) IF TF to advance and Propofol at 9.9 mL/hr (261 kcal/day); Vital HP at 65 mL/hr goal rate would provide 1560mL volume/day, 1560 kcal, 137g protein, and 1304mL water 3) Monitor Propofol rate and need to adjust TF recs; IF Propofol discontinued, continuous Vital HP with 70 mL/hr goal rate 4) additional water flush per founder ceo & president; initial low serum Na on admit 5) PALB Q /; daily scaled wt 6) Continue routine Thiamine, Folic acid, and MVI d/t EtOH hx 7) Routine bowel care Addendum: 06/12/23 at [address] Amended: Links added.
--- NOTE | 2023-06-12 11:23 | NUR ---
Dr. Grover in to see pt.
--- NOTE | 2023-06-12 12:47 | NUR ---
2 visitors at bedside.
--- NOTE | 2023-06-12 13:17 | NUR ---
Trickle Tube Feed started on pt.
[2023-06-12] MEDS: ipratropium/albuterol 3ml nebule NEB PRN ×2 (19:48→23:16)
[2023-06-12] MEDS: insulin glargine (Lantus) pen - multi-dose SQ SCH (20:58)
[2023-06-12] MEDS: octreotide inj. 500 MCG in normal saline 100ml IV soln 97.5 ML IV SCH (23:23)
[2023-06-13] VITALS (38 sets, daily range): BP systolic 96–111; BP diastolic 49–64; PULSE 77–100; RESP 14–16; O2SAT 93–98
[2023-06-13] MEDS: pantoprazole 40MG/NS 100ML BAG 100 ML IV SCH ×6 (00:55→19:56)
[2023-06-13] MEDS: insulin Lispro (HumaLOG) vial - multi-dose SQ SCH ×4 (01:30→19:57)
[2023-06-13 02:21] LABS: EOSINOPHILS % (AUTO) 0 % (0-6); HEMATOCRIT 25.6 % (42.0-52.0); HEMOGLOBIN 8.4 g/dl (14.0-17.9)
[2023-06-13 02:23] LABS: BASOPHILS % (AUTO) 0.1 % (0-1); LYMPHOCYTES # (AUTO) 1.4 X10'3 (1.1-4.8); LYMPHOCYTES % (AUTO) 8.9 % (21-51); MEAN CORPUSCULAR HEMOGLOBIN 26.8 PG (27.0-31.0); MEAN CORPUSCULAR HGB CONC 32.7 g/dL (33.0-36.5); MEAN CORPUSCULAR VOLUME 81.9 FL (78-98); MEAN PLATELET VOLUME 10.5 FL (7.4-10.4); MONOCYTES # (AUTO) 1.7 X10'3 (0-0.9); MONOCYTES % (AUTO) 10.9 % (2-12); NEUTROPHILS # (AUTO) 12.3 X10'3 (1.8-7.7); NEUTROPHILS % (AUTO) 80.1 % (42-75); PLATELET COUNT 58 X10'3 (140-440); RED BLOOD COUNT 3.13 X10'6 (4.70-6.10); RED CELL DISTRIBUTION WIDTH 19.1 % (11.5-14.5)
[2023-06-13] MEDS: FENTANYL 1000MCG/NS 100 ML BAG /PF IV PRN ×3 (02:23→19:37)
[2023-06-13 02:31] LABS: ALANINE AMINOTRANSFERASE 352 U/L (12-78); ALBUMIN 2.3 G/DL (3.4-5.0); ALKALINE PHOSPHATASE 82 IU/L (46-116); ANION GAP 11 (8-16); ASPARTATE AMINO TRANSFERASE 321 U/L (10-37); BILIRUBIN,TOTAL 5.3 MG/DL (0.1-1.0); BLOOD UREA NITROGEN 86 MG/DL (7-18); CALCIUM 6.8 MG/DL (8.5-10.1); CHLORIDE 100 MMOL/L (99-107); CREATININE 2.53 MG/DL (0.60-1.10); GLUCOSE 193 MG/DL (70-104); MAGNESIUM 2.2 MG/DL (1.5-2.4); PREALBUMIN 11.3 MG/DL (19-36); SODIUM 140 MMOL/L (135-145); eCRCL 37 ML/MIN; eGFR 28 ML/MIN
[2023-06-13] MEDS: propofol 1000mg/100ml bottle 100 ML IV PRN ×3 (02:31→18:53)
[2023-06-13 03:20] LABS: INR 1.4 INR; POTASSIUM 3.6 MMOL/L (3.5-5.1); PROTHROMBIN TIME 14.8 SECONDS (9.0-12.0)
[2023-06-13 03:21] LABS: ALBUMIN/GLOBULIN RATIO 0.8 (1.1-1.5); PHOSPHORUS 3.4 MG/DL (2.3-4.5); TOTAL PROTEIN 5.1 G/DL (6.4-8.2)
[2023-06-13 03:32] LABS: NUCLEATED RED BLOOD CELLS 7 /100WBC (0-0); TOTAL CELLS COUNTED 100
[2023-06-13 03:35] LABS: PLATELET ESTIMATE DECREASED
[2023-06-13 03:40] LABS: ABG BASE EXCESS 0.6 mmol/L (-2.0-2.0); ABG HCO3 25.6 mmol/L (22.0-26.0); ABG OXYGEN SATURATION 97.5 % (94-97); ABG PCO2 (T) 43.5 mmHg (35.0-48.0); ABG PH (T) 7.389 (7.340-7.440); ABG PO2 (T) 104.8 mmHg (75.0-100.0); ALLEN'S TEST POSITIVE; FCOHb 0.3 % (0.0-3.9); FHHb 2.5 % (0.0-5.0); FMetHb 0.3 % (0.0-1.5); FO2Hb 96.9 % (94-97); MODE VENT - prvc; PATIENT TEMPERATURE 37.2; PEEP 8 cm H2O; RESPIRATORY RATE 16 b/min; TIDAL VOLUME 550 mL; TOTAL HEMOGLOBIN 9.3 G/dl (14.0-17.9)
[2023-06-13 03:40] LABS: ANISOCYTOSIS 3+; POIKILOCYTOSIS FEW; POLYCHROMASIA FEW
[2023-06-13 03:43] LABS: LARGE PLATELETS FEW
[2023-06-13 03:48] LABS: WHITE BLOOD COUNT 15.9 X10'3 (4.5-11.0)
[2023-06-13] MEDS: ipratropium/albuterol 3ml nebule NEB PRN (03:48)
--- NOTE | 2023-06-13 07:15 | NUR ---
Patient in room CICU 2010. I have received report from Es HERRERA and had the opportunity to ask questions and assume patient care.
[2023-06-13] MEDS: thiamine 100mg/ml 2ml inj. IV SCH (07:58)
[2023-06-13] MEDS: methylPREDNISolone sod succ 125mg/2ml vial IV SCH (07:58)
[2023-06-13] MEDS: CefTRIAXone/D5W-Rocephin 1gm 50 ML IV SCH (07:58)
[2023-06-13] MEDS: folic acid 1mg/0.2ml inj IV SCH (08:00)
[2023-06-13] MEDS: docusate sod 100mg capsule PO SCH ×2 (08:00→19:52)
[2023-06-13] MEDS: K and/or MAG REPLACEMENT MC SCH ×2 (08:00→19:51)
[2023-06-13] MEDS: lactulose 20gm/30ml cup PO SCH ×4 (08:00→22:59)
[2023-06-13] MEDS: mineral oil/petrolatum ophthal oint EACHEYE SCH ×3 (08:01→19:51)
[2023-06-13] MEDS: NORepinephrine 8mg/ 250ml NS 250 ML IV SCH (11:45)
[2023-06-13] MEDS: octreotide inj. 500 MCG in normal saline 100ml IV soln 97.5 ML IV SCH (15:18)
[2023-06-13] MEDS: vasopressin inj. 40 UNIT in normal saline 50ml IV soln 38 ML IV SCH (18:53)
[2023-06-13] MEDS: methylPREDNISolone sod succ/PF 40mg inj. IV SCH (19:51)
[2023-06-13] MEDS: insulin glargine (Lantus) pen - multi-dose SQ SCH (19:59)
[2023-06-14] VITALS (38 sets, daily range): BP systolic 88–132; BP diastolic 39–84; PULSE 68–103; RESP 0–25; O2SAT 91–97
[2023-06-14] MEDS: FENTANYL 1000MCG/NS 100 ML BAG /PF IV PRN ×4 (00:43→23:32)
[2023-06-14] MEDS: propofol 1000mg/100ml bottle 100 ML IV PRN ×4 (01:14→23:17)
[2023-06-14] MEDS: mineral oil/petrolatum ophthal oint EACHEYE SCH ×4 (01:17→20:11)
[2023-06-14 02:01] LABS: BASOPHILS % (AUTO) 0.1 % (0-1); EOSINOPHILS % (AUTO) 0 % (0-6); HEMOGLOBIN 8.2 g/dl (14.0-17.9); MEAN PLATELET VOLUME 10.6 FL (7.4-10.4)
[2023-06-14 02:03] LABS: HEMATOCRIT 25.7 % (42.0-52.0); LYMPHOCYTES # (AUTO) 0.8 X10'3 (1.1-4.8); LYMPHOCYTES % (AUTO) 6.9 % (21-51); MEAN CORPUSCULAR HEMOGLOBIN 26.5 PG (27.0-31.0); MEAN CORPUSCULAR HGB CONC 31.9 g/dL (33.0-36.5); MEAN CORPUSCULAR VOLUME 83.2 FL (78-98); MONOCYTES # (AUTO) 1.3 X10'3 (0-0.9); MONOCYTES % (AUTO) 10.4 % (2-12); NEUTROPHILS # (AUTO) 10.1 X10'3 (1.8-7.7); NEUTROPHILS % (AUTO) 82.6 % (42-75); RED BLOOD COUNT 3.09 X10'6 (4.70-6.10); RED CELL DISTRIBUTION WIDTH 20.3 % (11.5-14.5); WHITE BLOOD COUNT 12.2 X10'3 (4.5-11.0)
[2023-06-14 02:06] LABS: PLATELET COUNT 50 X10'3 (140-440)
[2023-06-14 02:08] LABS: INR 1.4 INR; PROTHROMBIN TIME 15.1 SECONDS (9.0-12.0)
[2023-06-14] MEDS: insulin Lispro (HumaLOG) vial - multi-dose SQ SCH ×4 (02:09→20:32)
[2023-06-14 02:11] LABS: ALANINE AMINOTRANSFERASE 277 U/L (12-78); ALBUMIN 2.2 G/DL (3.4-5.0); ALKALINE PHOSPHATASE 80 IU/L (46-116); ANION GAP 7 (8-16); ASPARTATE AMINO TRANSFERASE 191 U/L (10-37); BILIRUBIN,TOTAL 4.6 MG/DL (0.1-1.0); BLOOD UREA NITROGEN 69 MG/DL (7-18); BUN/CREATININE RATIO 38.5 (10.0-20.0); CALCIUM 7.1 MG/DL (8.5-10.1); CHLORIDE 106 MMOL/L (99-107); CREATININE 1.79 MG/DL (0.60-1.10); GLUCOSE 185 MG/DL (70-104); MAGNESIUM 2.7 MG/DL (1.5-2.4); POTASSIUM 3.6 MMOL/L (3.5-5.1); SODIUM 145 MMOL/L (135-145); TOTAL CARBON DIOXIDE 31.6 MMOL/L (24-32); eCRCL 53 ML/MIN; eGFR 42 ML/MIN
[2023-06-14 02:18] LABS: ALBUMIN/GLOBULIN RATIO 0.8 (1.1-1.5); PHOSPHORUS 2.9 MG/DL (2.3-4.5); TOTAL PROTEIN 5.1 G/DL (6.4-8.2)
[2023-06-14] MEDS: pantoprazole 40MG/NS 100ML BAG 100 ML IV SCH ×4 (03:02→19:03)
[2023-06-14] MEDS: NORepinephrine 8mg/ 250ml NS 250 ML IV SCH ×2 (03:02→23:45)
[2023-06-14 03:10] LABS: NUCLEATED RED BLOOD CELLS 8 /100WBC (0-0); TOTAL CELLS COUNTED 100
[2023-06-14 03:12] LABS: ANISOCYTOSIS 3+; PLATELET ESTIMATE DECREASED; POLYCHROMASIA 1+
[2023-06-14 03:13] LABS: POIKILOCYTOSIS 1+; SMUDGE CELLS FEW
[2023-06-14 03:13] LABS: ABG BASE EXCESS 5.6 mmol/L (-2.0-2.0); ABG HCO3 29.7 mmol/L (22.0-26.0); ABG OXYGEN SATURATION 93.8 % (94-97); ABG PCO2 (T) 40.5 mmHg (35.0-48.0); ABG PH (T) 7.481 (7.340-7.440); ABG PO2 (T) 64.8 mmHg (75.0-100.0); ALLEN'S TEST POSITIVE; FCOHb 0.2 % (0.0-3.9); FHHb 6.2 % (0.0-5.0); FMetHb 0.3 % (0.0-1.5); FO2Hb 93.3 % (94-97); MODE VENT - prvc; PATIENT TEMPERATURE 36.5; PEEP 8 cm H2O; RESPIRATORY RATE 16 b/min; TIDAL VOLUME 550 mL; TOTAL HEMOGLOBIN 9.1 G/dl (14.0-17.9)
[2023-06-14] MEDS: methylPREDNISolone sod succ/PF 40mg inj. IV SCH ×2 (07:14→20:11)
[2023-06-14] MEDS: CefTRIAXone/D5W-Rocephin 1gm 50 ML IV SCH (07:15)
[2023-06-14] MEDS: thiamine 100mg/ml 2ml inj. IV SCH (07:15)
[2023-06-14] MEDS: folic acid 1mg/0.2ml inj IV SCH (07:20)
[2023-06-14] MEDS: lactulose 20gm/30ml cup PO SCH ×3 (07:21→20:00)
[2023-06-14] MEDS: K and/or MAG REPLACEMENT MC SCH ×2 (07:21→20:00)
[2023-06-14] MEDS: docusate sod 100mg capsule PO SCH ×2 (07:21→20:00)
[2023-06-14] MEDS: levoFLOXACIN-Levaquin 750MG/D5 150 ML IV SCH (07:48)
--- NOTE | 2023-06-14 08:13 | NUR ---
Sedation vacation this am. Pt. placed on spont. vent setting. Tachycardic, increased end tidal C02 to 61, and hitting and kicking, Disconnected vent tuning from ETT. Sedation resumed. employee benefits manager aware.
--- NOTE | 2023-06-14 08:39 | NUR ---
Pt's s.o. is here to visit pt.
[2023-06-14] MEDS: dexmedetomidine inj. 400 MCG in normal saline 100ml IV soln 96 ML IV SCH ×2 (10:24→20:00)
[2023-06-14 10:46] LABS: H PYLORI ANTIBODY NEGATIVE (Neg)
--- NOTE | 2023-06-14 12:09 | NUR ---
F/u 06/14: Pt seen this am, TF remain off. Per operative notes recommendation " to not reinsert OGT". Per discussion in CCR hold off TF until tomorrow. Pt is now day 5 inadequate nutrition, if unable to resume TF, consider initiating TPN if MD agreeable. ENMA noticed no TG lab despite propofol running prior, MD agreeable to obtaining TG lab. Addendum: 06/14/23 at [address] Amended: Links added.
[2023-06-14 14:41] LABS: TRIGLYCERIDES 240 MG/DL (20-135)
--- NOTE | 2023-06-14 16:17 | NUR ---
Pt. sat up suddenly in bed, kicking and straining against wrist restraints. Sedation increased.
[2023-06-14] MEDS: insulin glargine (Lantus) pen - multi-dose SQ SCH (20:33)
[2023-06-15] VITALS (31 sets, daily range): BP systolic 97–125; BP diastolic 41–73; PULSE 68–102; RESP 10–22; O2SAT 90–97
[2023-06-15] MEDS: pantoprazole 40MG/NS 100ML BAG 100 ML IV SCH ×5 (00:06→20:55)
[2023-06-15] MEDS: dexmedetomidine inj. 400 MCG in normal saline 100ml IV soln 96 ML IV SCH ×3 (00:56→09:07)
[2023-06-15] MEDS: lactulose 20gm/30ml cup PO SCH ×4 (02:00→20:00)
[2023-06-15 02:46] LABS: BASOPHILS % (AUTO) 0.3 % (0-1); LYMPHOCYTES % (AUTO) 4.6 % (21-51); NEUTROPHILS # (AUTO) 12.1 X10'3 (1.8-7.7)
[2023-06-15 02:48] LABS: EOSINOPHILS % (AUTO) 0 % (0-6); HEMATOCRIT 27.1 % (42.0-52.0); HEMOGLOBIN 8.7 g/dl (14.0-17.9); LYMPHOCYTES # (AUTO) 0.6 X10'3 (1.1-4.8); MEAN CORPUSCULAR HEMOGLOBIN 26.7 PG (27.0-31.0); MEAN CORPUSCULAR VOLUME 83.3 FL (78-98); MEAN PLATELET VOLUME 10.8 FL (7.4-10.4); MONOCYTES # (AUTO) 1.2 X10'3 (0-0.9); MONOCYTES % (AUTO) 8.7 % (2-12); NEUTROPHILS % (AUTO) 86.4 % (42-75); RED BLOOD COUNT 3.26 X10'6 (4.70-6.10); RED CELL DISTRIBUTION WIDTH 20.4 % (11.5-14.5)
[2023-06-15 02:49] LABS: PLATELET COUNT 47 X10'3 (140-440)
[2023-06-15] MEDS: mineral oil/petrolatum ophthal oint EACHEYE SCH ×4 (02:55→20:00)
[2023-06-15 03:00] LABS: ALANINE AMINOTRANSFERASE 226 U/L (12-78); ALBUMIN 2.2 G/DL (3.4-5.0); ALKALINE PHOSPHATASE 82 IU/L (46-116); ANION GAP 7 (8-16); ASPARTATE AMINO TRANSFERASE 145 U/L (10-37); BILIRUBIN,TOTAL 4.8 MG/DL (0.1-1.0); BLOOD UREA NITROGEN 55 MG/DL (7-18); BUN/CREATININE RATIO 40.4 (10.0-20.0); CALCIUM 7.1 MG/DL (8.5-10.1); CHLORIDE 112 MMOL/L (99-107); CREATININE 1.36 MG/DL (0.60-1.10); GLUCOSE 157 MG/DL (70-104); POTASSIUM 3.7 MMOL/L (3.5-5.1); SODIUM 149 MMOL/L (135-145); TOTAL CARBON DIOXIDE 30.1 MMOL/L (24-32); eCRCL 69 ML/MIN; eGFR 58 ML/MIN
[2023-06-15 03:03] LABS: ALBUMIN/GLOBULIN RATIO 0.8 (1.1-1.5); TOTAL PROTEIN 5.1 G/DL (6.4-8.2)
[2023-06-15 03:22] LABS: NUCLEATED RED BLOOD CELLS 8 /100WBC (0-0); TOTAL CELLS COUNTED 100
[2023-06-15 03:23] LABS: ANISOCYTOSIS 3+; HYPOCHROMASIA 1+; LARGE PLATELETS FEW; PLATELET ESTIMATE DECREASED; POIKILOCYTOSIS 1+; POLYCHROMASIA 1+; SMUDGE CELLS FEW
[2023-06-15 03:42] LABS: ABG BASE EXCESS 6.2 mmol/L (-2.0-2.0); ABG HCO3 29.8 mmol/L (22.0-26.0); ABG OXYGEN SATURATION 93.7 % (94-97); ABG PCO2 (T) 39.9 mmHg (35.0-48.0); ABG PH (T) 7.493 (7.340-7.440); ABG PO2 (T) 69.2 mmHg (75.0-100.0); ALLEN'S TEST POSITIVE; FCOHb 0.6 % (0.0-3.9); FHHb 6.2 % (0.0-5.0); FMetHb 0.3 % (0.0-1.5); FO2Hb 92.9 % (94-97); MODE VENT - prvc; PATIENT TEMPERATURE 37.5; PEEP 8 cm H2O; RESPIRATORY RATE 16 b/min; TIDAL VOLUME 550 mL; TOTAL HEMOGLOBIN 9.9 G/dl (14.0-17.9)
--- NOTE | 2023-06-15 06:30 | NUR ---
Patient in room CICU 2010. I have received report from JAVIER Henson and had the opportunity to ask questions and assume patient care.
[2023-06-15] MEDS: docusate sod 100mg capsule PO SCH ×2 (08:00→20:00)
[2023-06-15] MEDS: methylPREDNISolone sod succ/PF 40mg inj. IV SCH ×2 (08:04→20:55)
[2023-06-15] MEDS: CefTRIAXone/D5W-Rocephin 1gm 50 ML IV SCH (08:04)
[2023-06-15] MEDS: thiamine 100mg/ml 2ml inj. IV SCH (08:05)
[2023-06-15] MEDS: K and/or MAG REPLACEMENT MC SCH ×2 (08:05→20:00)
[2023-06-15] MEDS: folic acid 1mg/0.2ml inj IV SCH (08:09)
[2023-06-15] MEDS: propofol 1000mg/100ml bottle 100 ML IV PRN ×3 (08:17→19:04)
[2023-06-15] MEDS ORDERED: haloperidol lactate 5mg/ml inj IVH PRN (09:00)
--- NOTE | 2023-06-15 09:00 | NUR ---
MD VISIT Dr. Randall in to see patient. Discussed failed sedation vacation. new orders received.
[2023-06-15] MEDS ORDERED: haloperidol lactate 5mg/ml inj IVH ONE ×2 (09:10→14:30)
--- NOTE | 2023-06-15 10:00 | NUR ---
PIV D/C'd to right AC as it was infiltrating. all lines running through CL
--- NOTE | 2023-06-15 11:30 | NUR ---
Diprivan off. patient waking and following commands. levophed has been off for a while now. precedex continues.
--- NOTE | 2023-06-15 12:00 | NUR ---
patient on spontaneous vent settings. will wake up and follow commands. sats 97% on 35% FiO2.
--- NOTE | 2023-06-15 12:31 | NUR ---
F/u 06/15: Pt remains intubated with sedation off per CCR. Pt remains without with a feeding tube and is inadequate nutrition 6 days. Per CCR, plan is to try and extubate today, if extubation successful pt should receive a PO diet. If unable to advance to diet given failed extubation or other reasons, consider TPN. Per physician, plan is to place a central line. If TPN; see recs below. IF TPN, TPN will meet 100% of estimated kcal needs and 63% of estimated protein needs during intubation. Noted new TG of 240mg/dl lab on 06/14 per EMR. No bowel movement yet this admit however bowel care on order though held due to NPO status per EMR. Discussed with RN and MD JAZMIN to start erythromycin. Will continue to monitor and make recommendations as appropriate. Recommendations: 1.If medically appropriate advance diet as tolerated to regular 1) consider initiating TPN once central line has been placed and/or if diet has not advanced. 2)IF initiating TPN; Clinimix 5/20E @80ml/hr with seperate 20% 250ml intralipids to run for 12 hours daily @20.83ml/hr. To provide 2190kcal, 96g of AA, 38g of dextrose, GIR of 2.55g/kg/min. 3) Monitor Propofol/TG lab and need to adjust TPN recs 4) IF TPN, Prealb/TG qmon/thurs;daily wts 5) Continue routine Thiamine, Folic acid, and MVI d/t EtOH hx 6) Routine bowel care Addendum: 06/15/23 at [address] Amended: Links added.
--- NOTE | 2023-06-15 12:47 | NUR ---
Extubation Pt calmer, able to follow commands, Passes weaning parameters. Dr Randall notified via phone and asked to extubate him. RT at bedside for extubation.
--- NOTE | 2023-06-15 13:50 | NUR ---
MED ORDER Haldol ordered per MD. verified with MD of patient's existing 0.44 QT interval prior to giving to patient.
[2023-06-15] MEDS: erythromycin lactobionate IV 250 MG in normal saline 100ml IV soln 100 ML IV SCH ×2 (14:00→20:55)
[2023-06-15] MEDS: dextrose 5%-water 1,000 ML IV SCH (14:25)
--- NOTE | 2023-06-15 14:25 | NUR ---
visitor SO in to visit patient. patient calming a bit.
[2023-06-15] MEDS ORDERED: risperiDONE 2mg tablet PO ONE (14:31)
--- NOTE | 2023-06-15 14:55 | NUR ---
ORIENTATION patient drowsy but will wake up to use profanity. not being cooperative. remains with wrist restraints. bed in low position. bed locked. music therapy on for patient.
[2023-06-15 15:27] LABS: HEMOGLOBIN A1C 5.8 % (4.5-6.2)
--- NOTE | 2023-06-15 16:11 | NUR ---
notes patient's brother is here. patient being cooperative at this time and is tolerating ice chips. charge nurse calling GI doc to verify npo status.
--- NOTE | 2023-06-15 17:16 | NUR ---
ORIENTATION brother remains at bedside. patient cooperative, restraints off. all pumps cleared. repositions self in bed.
--- NOTE | 2023-06-15 17:23 | NUR ---
MD VISIT Dr. Guaman (resident MD) came to visit and notified her that patient did not receive Erythro nor risperdal.
--- NOTE | 2023-06-15 18:21 | NUR ---
Problems reprioritized. Patient report given, questions answered & plan of care reviewed with JAVIER Henson.
--- NOTE | 2023-06-15 18:24 | NUR ---
Orientee documentation: I have reviewed and agree with all interventions, assessments performed and documented by Etelvina HERRERA.
[2023-06-15] MEDS: NORepinephrine 8mg/ 250ml NS 250 ML IV SCH (18:45)
[2023-06-15] MEDS: vasopressin inj. 40 UNIT in normal saline 50ml IV soln 38 ML IV SCH (18:46)
[2023-06-15] MEDS: insulin glargine (Lantus) pen - multi-dose SQ SCH (21:00)
[2023-06-16] VITALS (25 sets, daily range): BP systolic 107–157; BP diastolic 60–89; PULSE 85–107; RESP 14–30; TEMP 99; O2SAT 90–99
[2023-06-16] MEDS: pantoprazole 40MG/NS 100ML BAG 100 ML IV SCH ×2 (01:00→06:37)
[2023-06-16] MEDS: lactulose 20gm/30ml cup PO SCH ×4 (02:00→19:47)
[2023-06-16 02:50] LABS: LYMPHOCYTES # (AUTO) 0.6 X10'3 (1.1-4.8); RED CELL DISTRIBUTION WIDTH 20.5 % (11.5-14.5)
[2023-06-16] MEDS: mineral oil/petrolatum ophthal oint EACHEYE SCH (02:51)
[2023-06-16 02:55] LABS: BASOPHILS % (AUTO) 0.1 % (0-1); EOSINOPHILS % (AUTO) 0 % (0-6); HEMOGLOBIN 8.5 g/dl (14.0-17.9); LYMPHOCYTES % (AUTO) 3.8 % (21-51); MEAN CORPUSCULAR HEMOGLOBIN 26.6 PG (27.0-31.0); MEAN CORPUSCULAR HGB CONC 31.4 g/dL (33.0-36.5); MEAN CORPUSCULAR VOLUME 84.5 FL (78-98); MEAN PLATELET VOLUME 10.7 FL (7.4-10.4); MONOCYTES # (AUTO) 1.5 X10'3 (0-0.9); MONOCYTES % (AUTO) 8.6 % (2-12); NEUTROPHILS # (AUTO) 14.9 X10'3 (1.8-7.7); NEUTROPHILS % (AUTO) 87.5 % (42-75); RED BLOOD COUNT 3.19 X10'6 (4.70-6.10); WHITE BLOOD COUNT 17.1 X10'3 (4.5-11.0)
[2023-06-16] MEDS: erythromycin lactobionate IV 250 MG in normal saline 100ml IV soln 100 ML IV SCH (02:56)
[2023-06-16 03:05] LABS: PLATELET COUNT 49 X10'3 (140-440)
[2023-06-16 03:11] LABS: ALANINE AMINOTRANSFERASE 205 U/L (12-78); ALBUMIN 2.3 G/DL (3.4-5.0); ALKALINE PHOSPHATASE 92 IU/L (46-116); ANION GAP 9 (8-16); ASPARTATE AMINO TRANSFERASE 175 U/L (10-37); BLOOD UREA NITROGEN 47 MG/DL (7-18); BUN/CREATININE RATIO 41.6 (10.0-20.0); CALCIUM 7.4 MG/DL (8.5-10.1); CHLORIDE 112 MMOL/L (99-107); CREATININE 1.13 MG/DL (0.60-1.10); GLUCOSE 125 MG/DL (70-104); SODIUM 151 MMOL/L (135-145); TOTAL CARBON DIOXIDE 29.6 MMOL/L (24-32); eCRCL 83 ML/MIN; eGFR 72 ML/MIN
[2023-06-16 03:12] LABS: ALBUMIN/GLOBULIN RATIO 0.9 (1.1-1.5); POTASSIUM 3.7 MMOL/L (3.5-5.1)
[2023-06-16] MEDS: dextrose 5%-water 1,000 ML IV SCH ×2 (04:43→10:11)
--- NOTE | 2023-06-16 06:36 | NUR ---
Patient in room CICU 2010. I have received report from JAVIER Henson and had the opportunity to ask questions and assume patient care.
--- NOTE | 2023-06-16 07:34 | NUR ---
CHAIR patient transferred to chair and is sitting up waiting for breakfast. coughing up thick yellow sputum. c/o being "sore". will discuss medication changes with MD during rounds. remains on protonix gtt as well as IVF. encouraged cough and deep breathing as well as fluid intake. NA+ 151.
[2023-06-16] MEDS: K and/or MAG REPLACEMENT MC SCH (08:00)
[2023-06-16] MEDS ORDERED: risperiDONE 2mg tablet PO SCH (08:00)
[2023-06-16] MEDS: docusate sod 100mg capsule PO SCH ×2 (08:00→19:48)
[2023-06-16] MEDS: levoFLOXACIN-Levaquin 750MG/D5 150 ML IV SCH (09:00)
[2023-06-16] MEDS: NORepinephrine 8mg/ 250ml NS 250 ML IV SCH (09:35)
--- NOTE | 2023-06-16 09:44 | NUR ---
ORDERS D/C CVP line
[2023-06-16] MEDS: CefTRIAXone/D5W-Rocephin 1gm 50 ML IV SCH (09:55)
[2023-06-16] MEDS: thiamine 100mg/ml 2ml inj. IV SCH (09:56)
[2023-06-16] MEDS: folic acid 1mg/0.2ml inj IV SCH (09:56)
[2023-06-16] MEDS: furosemide 20MG tablet PO SCH ×2 (11:02→19:47)
[2023-06-16] MEDS: multivitamins, therapeutics tablet PO SCH (11:23)
--- NOTE | 2023-06-16 11:39 | NUR ---
US ABD order for US of abd put in computer. patient was able to have a BM. loose, mushy, black.
--- NOTE | 2023-06-16 12:45 | NUR ---
ACTIVITY patient up to the chair for the second time. called pharmacy about need for aldactone. message sent as well. will D/C patient's RIJ CL after lunch.
[2023-06-16] MEDS: spironolactone 25 MG tablet PO SCH (14:00)
--- NOTE | 2023-06-16 15:46 | NUR ---
US ABD ascites in abdomen per US tech. will wait for official read to give to .
--- NOTE | 2023-06-16 15:58 | NUR ---
MD CONTACT Dr. Randall called to notify of US preliminary. called IR for paracentesis. Dr Randall to call Dr. Fofana.
--- NOTE | 2023-06-16 16:19 | NUR ---
IR PARACENTESIS IR crew here to tap patient. Dr. Randall is here as well.
--- NOTE | 2023-06-16 17:52 | NUR ---
1200ml taken off with paracentesis. family present. VSS.
--- NOTE | 2023-06-16 18:07 | NUR ---
Problems reprioritized. Patient report given, questions answered & plan of care reviewed with Elisabeth Bermudez
--- NOTE | 2023-06-16 18:15 | NUR ---
Patient in room CICU 2010. I have received report from Etelvina HERRERA and had the opportunity to ask questions and assume patient care.
[2023-06-16 18:43] LABS: BFSOURCE OTHER
[2023-06-16 18:44] LABS: BF RBC COUNT 63 /CU MM; BF WBC COUNT 6 /CU MM (0-1000); BFAPPEAR CLEAR; BFCOLOR YELLOW; BFVOLUME 60 ML
[2023-06-16 18:53] LABS: LYMPHOCYTES,BODY FLUID 26 %; MONOCYTES,BODY FLUID 52 %; NEUTROPHILS,BODY FLUID 22 %
[2023-06-16 18:54] LABS: BF MESOTHELIAL CELLS MODERATE
[2023-06-16 18:56] LABS: ALBUMIN,BODY FLUID < 0.6 G/DL
[2023-06-16] MEDS: metroNIDAZOLE 500mg tablet PO SCH (19:47)
--- NOTE | 2023-06-16 20:15 | NUR ---
report given to Miryam HERRERA and questions answered. Pt transferred via wheelchair on tele to room 3019. Pt oriented to room, call light, and plan of care. Pt's chart and meds given to electronic field service engineerJAVIER Lee.
[2023-06-17] VITALS (10 sets, daily range): BP systolic 96–131; BP diastolic 54–78; PULSE 82–115; RESP 14–24; TEMP 97.3–98.8; O2SAT 92–98
[2023-06-17] MEDS: lactulose 20gm/30ml cup PO SCH ×4 (02:26→20:31)
--- NOTE | 2023-06-17 06:32 | NUR ---
Patient report given, questions answered & plan of care reviewed with JAVIER Slade
[2023-06-17 06:49] LABS: ALANINE AMINOTRANSFERASE 205 U/L (12-78); ALBUMIN 2.4 G/DL (3.4-5.0); ALKALINE PHOSPHATASE 140 IU/L (46-116); ASPARTATE AMINO TRANSFERASE 167 U/L (10-37); BILIRUBIN,TOTAL 9.1 MG/DL (0.1-1.0)
[2023-06-17 06:52] LABS: ALBUMIN/GLOBULIN RATIO 0.9 (1.1-1.5); BILIRUBIN,DIRECT 6.8 MG/DL (0-0.3)
[2023-06-17 07:33] LABS: BASOPHILS % (AUTO) 0.2 % (0-1); EOSINOPHILS # (AUTO) 0.1 X10'3 (0-0.9); EOSINOPHILS % (AUTO) 0.4 % (0-6); MEAN CORPUSCULAR HGB CONC 31.2 g/dL (33.0-36.5); MEAN PLATELET VOLUME 9.6 FL (7.4-10.4); NEUTROPHILS % (AUTO) 83.4 % (42-75); RED CELL DISTRIBUTION WIDTH 20.7 % (11.5-14.5)
[2023-06-17 07:34] LABS: ANION GAP 8 (8-16); BLOOD UREA NITROGEN 31 MG/DL (7-18); CALCIUM 7.8 MG/DL (8.5-10.1); CHLORIDE 108 MMOL/L (99-107); GLUCOSE 92 MG/DL (70-104); SODIUM 143 MMOL/L (135-145); TOTAL CARBON DIOXIDE 27.5 MMOL/L (24-32); eCRCL 94 ML/MIN; eGFR 82 ML/MIN
[2023-06-17 07:35] LABS: HEMATOCRIT 28.3 % (42.0-52.0); HEMOGLOBIN 8.8 g/dl (14.0-17.9); LYMPHOCYTES # (AUTO) 1.6 X10'3 (1.1-4.8); LYMPHOCYTES % (AUTO) 10.3 % (21-51); MEAN CORPUSCULAR VOLUME 83.3 FL (78-98); MONOCYTES # (AUTO) 0.9 X10'3 (0-0.9); MONOCYTES % (AUTO) 5.7 % (2-12); PLATELET COUNT 53 X10'3 (140-440); POTASSIUM 3.6 MMOL/L (3.5-5.1); WHITE BLOOD COUNT 15.6 X10'3 (4.5-11.0)
[2023-06-17 07:51] LABS: ANISOCYTOSIS 3+; MICROCYTOSIS 1+; PLATELET ESTIMATE DECREASED
[2023-06-17 07:52] LABS: POIKILOCYTOSIS 1+
[2023-06-17] MEDS: docusate sod 100mg capsule PO SCH ×2 (08:00→20:31)
[2023-06-17] MEDS: folic acid 1mg/0.2ml inj IV SCH (08:00)
[2023-06-17] MEDS: thiamine 100mg/ml 2ml inj. IV SCH (08:00)
[2023-06-17] MEDS: multivitamins, therapeutics tablet PO SCH (09:03)
[2023-06-17] MEDS: furosemide 20MG tablet PO SCH ×2 (09:03→20:31)
[2023-06-17] MEDS: CefTRIAXone/D5W-Rocephin 1gm 50 ML IV SCH (09:03)
[2023-06-17] MEDS: pantoprazole 40mg Tablet.DR PO SCH (09:03)
[2023-06-17] MEDS: metroNIDAZOLE 500mg tablet PO SCH ×2 (09:03→20:31)
[2023-06-17] MEDS: spironolactone 25 MG tablet PO SCH (09:08)
[2023-06-17] MEDS: predniSONE 20 mg tablet PO SCH (09:08)
[2023-06-17] MEDS ORDERED: SPIR25TA PO (09:39)
[2023-06-17] MEDS ORDERED: PANT40TA54 PO (09:39)
[2023-06-17] MEDS ORDERED: CARV3.12 PO (09:39)
[2023-06-17] MEDS ORDERED: LACT10SO3 PO (09:39)
[2023-06-17] MEDS ORDERED: LEVO750T68 PO (09:39)
[2023-06-17] MEDS ORDERED: METR-159 PO (09:39)
[2023-06-17] MEDS ORDERED: FURO40TA4 PO (09:39)
--- NOTE | 2023-06-17 14:42 | NUR ---
PRESSURE ULCER EDUCATION: DEFINITION: A pressure ulcer is an area of skin that breaks down when you stay in one position too long. The constant pressure against the skin reduces the blood flow to that area and the affected tissue dies. CAUSES: "Being bedridden or in a wheelchair "Fragile skin "Having a chronic condition, such as diabetes or vascular disease "Inability to move certain parts of your body without assistance "Older age "Incontinence of urine or stool SYMPTOMS: "A reddened area that DOES NOT turn white when pressed on - this can be the beginning of a pressure ulcer "A blister, deep sore or a crater - these can be advanced pressure ulcers FIRST AID: "Relieve the pressure on this area "Keep the area clean and dry "Call your primary doctor if you see any of the above symptoms "DO NOT massage the area "DO NOT use a donut shaped or ring shaped pillow- these actually interfere with the blood flow and cause complications PREVENTION: "Check for pressure ulcers everyday "Change position at least every two hours to relieve pressure "Use items that help relieve pressure- pillows, sheepskin, foam padding, and powders. "Keep skin clean and dry "Eat healthy well balanced meals "Exercise daily IF YOU SEE ANY OF THESE SYMPTOMS WHILE IN THE HOSPITAL - TELL YOUR NURSE IMMEDIATELY. IF YOU SEE ANY OF THESE SYMPTOMS WHILE AT HOME OR HAVE ANY QUESTIONS OR CONCERNS ABOUT PRESSURE ULCERS - CALL YOUR PRIMARY DOCTOR IMMEDIATELY. Addendum: 06/17/23 at 1443 by Delroy Leblanc RN Amended: Links added.
[2023-06-17] MEDS: carvedilol 6.25mg tablet PO SCH (20:31)
[2023-06-18 02:00] VITALS: BP 127/76; PULSE 84; RESP 21; TEMP 97.2; O2SAT 95
[2023-06-18] MEDS: lactulose 20gm/30ml cup PO SCH ×4 (02:31→14:29)
[2023-06-18 06:45] VITALS: BP 122/79; PULSE 85; RESP 19; TEMP 98.8; O2SAT 95
[2023-06-18] MEDS: folic acid 1mg/0.2ml inj IV SCH (08:00)
[2023-06-18 08:23] LABS: BASOPHILS % (AUTO) 0.2 % (0-1); EOSINOPHILS # (AUTO) 0.1 X10'3 (0-0.9); EOSINOPHILS % (AUTO) 0.6 % (0-6); HEMATOCRIT 29.4 % (42.0-52.0); HEMOGLOBIN 9.1 g/dl (14.0-17.9); LYMPHOCYTES # (AUTO) 1.9 X10'3 (1.1-4.8); LYMPHOCYTES % (AUTO) 12.9 % (21-51); MEAN CORPUSCULAR HGB CONC 30.9 g/dL (33.0-36.5); MEAN CORPUSCULAR VOLUME 84.2 FL (78-98); MEAN PLATELET VOLUME 10.6 FL (7.4-10.4); MONOCYTES # (AUTO) 1.1 X10'3 (0-0.9); MONOCYTES % (AUTO) 7.8 % (2-12); NEUTROPHILS # (AUTO) 11.4 X10'3 (1.8-7.7); NEUTROPHILS % (AUTO) 78.5 % (42-75); PLATELET COUNT 71 X10'3 (140-440); RED BLOOD COUNT 3.49 X10'6 (4.70-6.10); RED CELL DISTRIBUTION WIDTH 21.3 % (11.5-14.5); WHITE BLOOD COUNT 14.6 X10'3 (4.5-11.0)
[2023-06-18] MEDS ORDERED: spironolactone 50 MG tablet PO SCH (08:30)
[2023-06-18] MEDS: metroNIDAZOLE 500mg tablet PO SCH (08:40)
[2023-06-18] MEDS: pantoprazole 40mg Tablet.DR PO SCH (08:40)
[2023-06-18] MEDS: levoFLOXACIN-Levaquin 750MG/D5 150 ML IV SCH (08:40)
[2023-06-18] MEDS: furosemide 20MG tablet PO SCH (08:40)
[2023-06-18] MEDS: multivitamins, therapeutics tablet PO SCH (08:40)
[2023-06-18] MEDS: docusate sod 100mg capsule PO SCH (08:40)
[2023-06-18] MEDS: carvedilol 6.25mg tablet PO SCH (08:40)
[2023-06-18] MEDS: thiamine 100mg/ml 2ml inj. IV SCH (08:40)
[2023-06-18] MEDS: predniSONE 20 mg tablet PO SCH (08:43)
[2023-06-18 09:19] LABS: ANISOCYTOSIS 3+; MICROCYTOSIS 1+; PLATELET ESTIMATE DECREASED; POIKILOCYTOSIS FEW
[2023-06-18] MEDS ORDERED: ATOR10TA PO (10:55)
[2023-06-18 11:00] VITALS: BP 114/68; PULSE 100; RESP 16; TEMP 98; O2SAT 95
--- NOTE | 2023-06-18 15:30 | NUR ---
PT DC'D HOME. ALL DC INSTRUCTIONS EXPLAINED TO PATIENT AND HIS WITH BOTH VERBALIZING UNDERSTANDING REGARDING PLAN O9F CARE. PT NEEDS TO FIND A PRIMARY CARE DOCTOR AND WAS GIVEN SOME INFO ON DOCTORS IN THE AREA. INSTRUCTED PATIENT IF HE RUNS OUT OF MEDICINE BEFORE FINDING A DOCTOR THAT HE CAN COME TO THE ED OR GO TO AN URGENT CARE CLINIC FOR REFILLS. PT PRESCRIBED 7 NEW MEDICATIONS FOR HIS LIVER FAILURE. WAS AWARDED EMERGENCY MEDICAL AND GAVE A FACE SHEET WITH HIS NEW POLICY NUMBER TO CHANGE CONSULTANT NEW PRESCRIPTIONS. PATIENT WAS PROVIDED WITH A WHEELCHAIR AND A FWW UPON DISCHARGE. ENCOURAGED TO LOOK FOR A 3 IN 1 COMMODE FROM THE [employer], WHICH WILL HELP PATIENT IS ON LACTULOSE NOW AND IS STILL WEAK, WHERE A BEDSIDE COMMODE MIGHT HELP. PHYSICAL THERAPY WORKED WITH PATIENT TODAY AND HE IS SLOWLY IMPROVING HIS STRENGTH. GAVE THE UNIT PHONE NUMBER IN CASE THERE IS A PROBLEM WITH PICKING UP MEDICATIONS THEY DO NOT HAVE VERY [employer]CH [employer] AND JUST GOT MEDICAL AWARDED IN THE LAST 24 HOURS. ALL QUESTIONS ANSWERED, VSS LEFT VIA WHEELCHAIR
[2023-06-18 16:00] VITALS: BP 118/77; PULSE 98; RESP 18; TEMP 98.7; O2SAT 95
--- NOTE | 2023-06-19 09:53 | NUR ---
late chart entry from 06/18/2023 @ approx 1600 - charted vital signs and made sure dc note written - letagel
== END 2023-06-18 16:27 | disposition home or self-care (01) | DRG 720 ==
LOC: ER 12:20 → ED HOLD 15:03 → CICU 2S 16:50 → PCU 3S 06-16 20:00
PROVIDERS: ADMIT Internal Medicine Critical Care Medicine; ATTEND Internal Medicine Critical Care Medicine
PROC: 5A1955Z Respiratory Ventilation, Greater than 96 Consecutive Hours (ICD-10-PCS; principal; 2023-06-09)
PROC: 30233N1 Transfusion of Nonautologous Red Blood Cells into Peripheral Vein, Percutaneous Approach (ICD-10-PCS; 2023-06-09)
PROC: 0BH17EZ Insertion of Endotracheal Airway into Trachea, Via Natural or Artificial Opening (ICD-10-PCS; 2023-06-09)
PROC: 05HY33Z Insertion of Infusion Device into Upper Vein, Percutaneous Approach (ICD-10-PCS; 2023-06-09)
PROC: B3251ZZ Computerized Tomography (CT Scan) of Bilateral Common Carotid Arteries using Low Osmolar Contrast (ICD-10-PCS; 2023-06-09)
PROC: B32G1ZZ Computerized Tomography (CT Scan) of Bilateral Vertebral Arteries using Low Osmolar Contrast (ICD-10-PCS; 2023-06-09)
PROC: B32R1ZZ Computerized Tomography (CT Scan) of Intracranial Arteries using Low Osmolar Contrast (ICD-10-PCS; 2023-06-09)
PROC: B3281ZZ Computerized Tomography (CT Scan) of Bilateral Internal Carotid Arteries using Low Osmolar Contrast (ICD-10-PCS; 2023-06-09)
PROC: 30233K1 Transfusion of Nonautologous Frozen Plasma into Peripheral Vein, Percutaneous Approach (ICD-10-PCS; 2023-06-09)
PROC: 02HV33Z Insertion of Infusion Device into Superior Vena Cava, Percutaneous Approach (ICD-10-PCS; 2023-06-09)
PROC: 06L38CZ Occlusion of Esophageal Vein with Extraluminal Device, Via Natural or Artificial Opening Endoscopic (ICD-10-PCS; 2023-06-13)
PROC: 0W9G3ZZ Drainage of Peritoneal Cavity, Percutaneous Approach (ICD-10-PCS; 2023-06-16)
PROC: 05HB33Z Insertion of Infusion Device into Right Basilic Vein, Percutaneous Approach (ICD-10-PCS; 2023-06-16)
DX: A41.9 Sepsis, unspecified organism (principal); J80 Acute respiratory distress syndrome; K72.00 Acute and subacute hepatic failure without coma; N17.0 Acute kidney failure with tubular necrosis; I46.9 Cardiac arrest, cause unspecified; G93.41 Metabolic encephalopathy; I85.11 Secondary esophageal varices with bleeding; J18.9 Pneumonia, unspecified organism; E46 Unspecified protein-calorie malnutrition; R65.21 Severe sepsis with septic shock; R57.1 Hypovolemic shock; D62 Acute posthemorrhagic anemia; D68.4 Acquired coagulation factor deficiency; I21.A1 Myocardial infarction type 2; F17.210 Nicotine dependence, cigarettes, uncomplicated; R00.1 Bradycardia, unspecified; K76.82 Hepatic encephalopathy; K70.11 Alcoholic hepatitis with ascites; E87.4 Mixed disorder of acid-base balance; Z20.822 Contact with and (suspected) exposure to COVID-19; K25.9 Gastric ulcer, unspecified as acute or chronic, without hemorrhage or perforation; D69.59 Other secondary thrombocytopenia; E87.1 Hypo-osmolality and hyponatremia; I31.39 Other pericardial effusion (noninflammatory); E83.51 Hypocalcemia; D63.8 Anemia in other chronic diseases classified elsewhere; K70.31 Alcoholic cirrhosis of liver with ascites; E87.6 Hypokalemia; F10.20 Alcohol dependence, uncomplicated; N39.0 Urinary tract infection, site not specified; Z78.1 Physical restraint status; Z79.899 Other long term (current) drug therapy; Z68.34 Body mass index [BMI] 34.0-34.9, adult; Z99.11 Dependence on respirator [ventilator] status
CPT/HCPCS: 36410; 36415; 36430; 36600; 43244; 49083; 70450; 70496; 70498; 71045; 71250; 74176; 76700; 76937; 80048; 80053; 80076; 80305; 80320; 80329; 81001; 82042; 82103; 82140; 82550; 82570; 82803; 82948; 83036; 83605; 83735; 84100; 84105; 84132; 84133; 84134; 84145; 84156; 84300; 84478; 84484; 84540; 85007; 85008; 85018; 85025; 85027; 85610; 85730; 86677; 86803; 86885; 86900; 86901; 86920; 87040; 87070; 87077; 87081; 87088; 87340; 87522; 87811; 89051; 93005; 93306; 94002; 94003; 94640; 94760; 94799; 97110; 97116; 97161; 97530; 99152; 99285; A4333; A4615; A5200; A6212; A6213; A6258; A6449; C1729; C1751; C1758; C9113; G0378; J0132; J0171; J0461; J0610; J0696; J1364; J1630; J1815; J1940; J1956; J2060; J2354; J2405; J2704; J2920; J2930; J3010; J3411; J3480; J3490; J7030; J7040; J7060; J7070; J7120; J7512; P9016; P9059; Q9967